=== PATIENT | female | born 1965 | race Caucasian/White ===

== ENCOUNTER 2017-04-19 12:04 | Inpatient (IN) | payer OTHER ==
[2017-04-19 12:52] LABS: % IMMATURE GRANULYOCYTES 0.2 % (0.0-1.1); ABSOLUTE IMMATURE GRANULOCYTES 0.02 10^3/uL (0.00-0.10); ADD DIFF? NO; ADD MORPH? NO; ADD SCAN? NO; ATYPICAL LYMPHOCYTE FLAG 0 (0-99); FRAGMENT RBC FLAG 10 (0-99); HEMATOCRIT 41.6 % (38.0-47.0); HEMOGLOBIN 13.8 g/dL (12.6-16.3); LEFT SHIFT FLG 0 (0-99); LIPEMIA HEMOLYSIS FLAG 80 (0-99); MEAN CELL HEMOGLOBIN 31.4 pg (27.9-34.1); MEAN CELL HEMOGLOBIN CONCENTR. 33.2 g/dL (32.4-36.7); MEAN CELL VOLUME 94.8 fL (81.5-99.8); MEAN PLATELET VOLUME 11.6 fL (8.7-11.7); PLATELET CLUMPS FLAG 10 (0-99); PLATELET COUNT 306 10^3/uL (150-400); RED BLOOD CELL COUNT 4.39 10^6/uL (4.18-5.33); RED CELL DISTRIBUTION WIDTH 12.5 % (11.5-15.2)
--- NOTE | 2017-04-19 13:01 | EDPHY ---
H & P Time Seen by Provider: 04/19/17 12:32 HPI/ROS: CHIEF COMPLAINT: Mental health hold HISTORY OF PRESENT ILLNESS: Patient is a history of bipolar disorder and is brought in by [facility] on a mental health hold, which states in part that she is "not eating, not taking meds, not showing to work, increasingly agitated..." Patient apparently is been talking in a baby voice and acting psychotic and distracted. On arrival the patient has no medical complaints. She specifically denies any recent illnesses or overdose. Is not suicidal. REVIEW OF SYSTEMS: Eye: no change in vision ENT: no sore throat Cardiac: no chest pain or syncope Pulmonary: no cough or SOB Abdomen: no vomiting, diarrhea, abdominal pain Musculoskeletal: no back pain Skin: no rash Neuro: no headache Constitutional: no fever : no urinary symptoms A comprehensive 10 point review of systems is otherwise negative aside from elements mentioned in the history of present illness. PAST MEDICAL HISTORY: bipolar disorder Social history: Denies alcohol or drugs today General Appearance: Alert and conversant, cooperative. Eyes: No scleral icterus. ENT, Mouth: Normal mucous membranes. Respiratory: Normal respiratory effort, breath sounds equal, lungs are clear to auscultation. Cardiovascular: Regular rate and rhythm. Gastrointestinal: Abdomen is soft and non tender. Neurological: Alert and oriented x3. Normally conversant. Face symmetric, normal movement and sensation in all extremities. Skin: Warm and dry, no rashes. Musculoskeletal: No extremity deformity or tenderness. Psychiatric: Not agitated. Emergency Department course/MDM: Patient arrives on a mental health hold without symptoms or physical exam evidence of medical illness. She is noted to be hypertensive but is asymptomatic from that standpoint. [place] 1.1, ethanol 0, cleared medically for psychiatric evaluation. 1800: The patient will be transferred to [facility] for inpatient psychiatric hospital bed not available at this facility, in stable condition; accepting physician is Dr. Darci Vargas. Smoking Status: Never smoked Constitutional: Initial Vital Signs Temperature (C) 36.7 C 04/19/17 12:09 Heart Rate 79 04/19/17 12:09 Respiratory Rate 20 04/19/17 12:09 Blood Pressure 161/120 H 04/19/17 12:09 O2 Sat (%) 97 04/19/17 12:09 O2 Delivery Mode Room Air Allergies/Adverse Reactions: No Known Allergies Allergy (Unverified 04/19/17 12:08) Home Medications: Medication Instructions Recorded ENALAPRIL MALEATE 04/19/17 [place] Carbonate 04/19/17 Risperdal 04/19/17 Ritalin 10mg (*) 04/19/17 Medical Decision Making Differential Diagnosis: Differential considered including but not limited to lithium toxicity, other medication side effect, bipolar disorder, drug or alcohol, metabolic. - Data Points Laboratory Results: Laboratory Results 04/19/17 12:30 04/19/17 12:30 04/19/17 04/19/17 04/19/17 13:50 12:30 12:30 WBC RBC Hgb Hct MCV MCH MCHC RDW Plt Count MPV Neut % (Auto) Lymph % (Auto) [place] % (Auto) Eos % (Auto) Baso % (Auto) Nucleat RBC Rel Count Absolute Neuts (auto) Absolute Lymphs (auto) Absolute Monos (auto) Absolute Eos (auto) Absolute Basos (auto) Absolute Nucleated RBC Immature Gran % Immature Gran # Sodium 140 mEq/L mEq/L (134-144) Potassium 4.1 mEq/L mEq/L (3.5-5.2) Chloride 104 mEq/L mEq/L (97-110) Carbon Dioxide 21 mEq/l L mEq/l (22-31) Anion Gap 15 mEq/L mEq/L (8-16) BUN 12 mg/dL mg/dL (7-23) Creatinine 1.0 mg/dL mg/dL (0.6-1.0) Estimated GFR 59 Glucose 103 mg/dL H mg/dL (70-100) Calcium 11.2 mg/dL H mg/dL (8.5-10.4) Phosphorus 4.0 mg/dL mg/dL (2.5-4.5) Beta HCG, Qual NEGATIVE Urine Opiates Screen NEGATIVE (NEGATIVE) Urine Barbiturates NEGATIVE (NEGATIVE) Ur Phencyclidine Scrn NEGATIVE (NEGATIVE) Ur Amphetamine Screen NEGATIVE (NEGATIVE) U Benzodiazepines Scrn NEGATIVE (NEGATIVE) [place] 1.1 mEq/L mEq/L (0.6-1.2) Urine Cocaine Screen NEGATIVE (NEGATIVE) U Marijuana (THC) Screen NEGATIVE (NEGATIVE) Ethyl Alcohol < 10 mg/dL mg/dL (0-10) 04/19/17 12:30 WBC 8.26 10^3/uL 10^3/uL (3.80-9.50) RBC 4.39 10^6/uL 10^6/uL (4.18-5.33) Hgb 13.8 g/dL g/dL (12.6-16.3) Hct 41.6 % % (38.0-47.0) MCV 94.8 fL fL (81.5-99.8) MCH 31.4 pg pg (27.9-34.1) MCHC 33.2 g/dL g/dL (32.4-36.7) RDW 12.5 % % (11.5-15.2) Plt Count 306 10^3/uL 10^3/uL (150-400) MPV 11.6 fL fL (8.7-11.7) Neut % (Auto) 68.6 % % (39.3-74.2) Lymph % (Auto) 23.2 % % (15.0-45.0) [place] % (Auto) 6.7 % % (4.5-13.0) Eos % (Auto) 0.8 % % (0.6-7.6) Baso % (Auto) 0.5 % % (0.3-1.7) Nucleat RBC Rel Count 0.0 % % (0.0-0.2) Absolute Neuts (auto) 5.66 10^3/uL 10^3/uL (1.70-6.50) Absolute Lymphs (auto) 1.92 10^3/uL 10^3/uL (1.00-3.00) Absolute Monos (auto) 0.55 10^3/uL 10^3/uL (0.30-0.80) Absolute Eos (auto) 0.07 10^3/uL 10^3/uL (0.03-0.40) Absolute Basos (auto) 0.04 10^3/uL 10^3/uL (0.02-0.10) Absolute Nucleated RBC 0.00 10^3/uL 10^3/uL (0-0.01) Immature Gran % 0.2 % % (0.0-1.1) Immature Gran # 0.02 10^3/uL 10^3/uL (0.00-0.10) Sodium Potassium Chloride Carbon Dioxide Anion Gap BUN Creatinine Estimated GFR Glucose Calcium Phosphorus Beta HCG, Qual Urine Opiates Screen Urine Barbiturates Ur Phencyclidine Scrn Ur Amphetamine Screen U Benzodiazepines Scrn [place] Urine Cocaine Screen U Marijuana (THC) Screen Ethyl Alcohol Departure - Departure Disposition: [facility] IP Clinical Impression: Bipolar disorder Qualifiers: Active/Remission status: currently active Current bipolar episode type: mixed Current episode severity: severe Psychotic features: with psychotic features Qualified Code(s): F31.64 - Bipolar disorder, current episode mixed, severe, with psychotic features Condition: Good Referrals: DR CHRISTA [Other] - As per Instructions
[2017-04-19 13:07] LABS: ANION GAP 15 mEq/L (8-16); CALCIUM 11.2 mg/dL (8.5-10.4); CARBON DIOXIDE 21 mEq/l (22-31); CHLORIDE 104 mEq/L (97-110); ETHANOL SERUM < 10 mg/dL (0-10); GLOMERULAR FILTRATION RATE 59; GLUCOSE 103 mg/dL (70-100); LITHIUM 1.1 mEq/L (0.6-1.2); POTASSIUM 4.1 mEq/L (3.5-5.2); SODIUM 140 mEq/L (134-144)
[2017-04-19] MEDS ORDERED: MAG HYDROX/AL HYDROX/SIMETH 30 ML UDCUP PO PRN (20:53)
[2017-04-19] MEDS ORDERED: NICOTINE POLACRILEX 2 MG GUM B PRN (20:53)
[2017-04-19] MEDS ORDERED: MAGNESIUM HYDROXIDE 30 ML UDCUP PO PRN (20:53)
[2017-04-19] MEDS ORDERED: LORazepam 0.5 MG TAB PO PRN (20:53)
[2017-04-19] MEDS ORDERED: OLANZapine 5 MG TAB PO PRN (20:54)
[2017-04-19] MEDS ORDERED: LITHIUM CARBONATE 600 MG CAP PO ONE (21:00)
--- NOTE | 2017-04-20 09:48 | BAPA ---
[f rep st] ADMISSION PSYCHIATRIC ASSESSMENT CHIEF COMPLAINT: The patient is a 51-year-old female whose chief complaint to me today is, "Two officers came by the home I am living in now." HISTORY OF PRESENT ILLNESS: At this point in time, I have minimal past history on this patient. She readily admits that she has bipolar mood disorder. Her story is difficult to put together, but there is also some collateral information from the patient's chart. She has bipolar mood disorder, and her friends contacted police officers several times for welfare checks. She has not been coming to work. They believe she has not been taking her medications. She has been increasingly disturbed, disheveled, and not maintaining her normal life patterns. She is unable to give me substantial history today. She does tell me that her outpatient psychiatrist is currently Fortino Clay MD. We will contact him for collateral information. REVIEW OF SYSTEMS: She is unable to describe her current mood. She tells me her sleep has been "very sound." She relates her energy, concentration, appetite are all "good." She denies any suicidal or homicidal ideation. She endorses abnormal perceptions, but seems to think that this is a normal part of life. Thus, I am not clear what she is telling me when she endorses abnormal perceptions. She also endorses feeling anxious because she is in the hospital but cannot elaborate on this further. SOCIAL HISTORY: She denies tobacco, alcohol, or substance use. CURRENT MEDICATIONS: Her current medications include lithium, methylphenidate, enalapril, and risperidone. She is not sure of all the doses. She indicates that, at one point, she was taking 1200 mg of lithium carbonate each day and 0.5 mg of Risperdal each day. She is not clear about the other doses of medications. ALLERGIES: She denies any allergies to any medications. PAST MEDICAL HISTORY: Remarkable for hypertension and menopause. PAST PSYCHIATRIC HISTORY: She readily admits that she has bipolar mood disorder. MENTAL STATUS EXAM: She is awake and alert but very poorly groomed, quite disheveled. Her speech is normal in rate and tone; however, her thought processes are circumstantial, rambling, and very disorganized. She takes a very long time to get to any point, and the point that she makes is usually not the one she seemed to start out toward. Her thought processes border on significantly tangential. Her mood and affect are incongruent. She looks distressed and presents distressed but says her mood is good. Mood does not appear to be significantly elevated at this point in time. Her insight and judgment are both quite poor. IMPRESSION: The patient is a 51-year-old female with bipolar mood disorder, whom we have minimal past history on, but at this point in time it appears she has not been working, not taking her medications, and friends and family members became very concerned about her and initiated a welfare check. She ended up in our emergency room, was placed on a 72-hour mental health hold, and is now in our inpatient psychiatric unit. She has an outpatient psychiatrist, and we will be contacting him for further history and trying to restart her medications. DIAGNOSIS: 1. Bipolar mood disorder, current episode mixed, severe. 2. Hypertension 3. Menopause PLAN: 1. Admit on a 72-hour mental health hold which expires 04/22/2017 at 12:15. 2. Collect collateral information. 3. Restart medications. 4. Coordinate with outpatient care team for followup. /[id number]/MODL MTDD
[2017-04-20] MEDS ORDERED: LORazepam 0.5 MG TAB PO PRN (10:33)
--- NOTE | 2017-04-20 14:11 | SOAPPROG ---
SOAP Progress Note Assessment/Plan: Assessment: Bipolar Mood Disorder, MRE Manic (v mixed) Hypertension Menopause Plan: 04/20/17 14:11 Subjective: Additional Information Spoke with outpatient psychiatrist, Fortino Ladd MD. He confirms Bipolar Mood disorder. He has been treating Ms Parmar for several years. She has periodic exacerbations of her Bipolar Mood Disorder, but during her stable periods she does well. She has many friends. She works for [employer] and has for years. Home medications include lithium carbonate 1200 mg BID, risperdal 0.25 mg daily , and meds for HTN. In January they decided to try adding a stimulant, methyphenidate, to help with her attention problems. Dr. Ladd thinks the methylphenidate helped a lot with attention problems, but may have precipitated this exacerbation of her Bipolar. Objective: Vital Signs Temp Pulse Resp BP Pulse Ox 36.7 C 70 16 170/90 H 97 04/20/17 00:21 04/20/17 09:00 04/20/17 00:21 04/20/17 09:00 04/20/17 09:00 ICD10 Worksheet Patient Problems: Problems Problem Status Onset Bipolar disorder Acute
--- NOTE | 2017-04-20 16:18 | BCON ---
[f rep st] BEHAVIORAL HEALTH CONSULTATION INTERNAL MEDICINE CONSULTATION DATE OF CONSULTATION: 04/20/2017 REFERRING PHYSICIAN: Darci Vargas MD REASON FOR REFERRAL: Medical clearance for inpatient behavioral health stay. HISTORY OF PRESENT ILLNESS: This patient was brought to the emergency department on mental health hold. She had been noted by friends to be not eating, not taking medications, not showing up to work, and increasingly agitated. She was evaluated by the mental health team and admitted for further psychiatric care. She currently is without any acute complaints. PAST MEDICAL HISTORY: 1. Bipolar disorder. 2. Hypertension. PAST SURGICAL HISTORY: She denies any history of surgeries. MEDICATIONS: 1. Methylphenidate 10 mg p.o. daily. 2. [place] 1200 mg p.o. twice daily. 3. Risperidone 0.25 mg daily. 4. Enalapril 10 mg p.o. daily. ALLERGIES: There are no known drug allergies. SOCIAL HISTORY: She is a nonsmoker. She uses alcohol at times. She works at [employer]. FAMILY HISTORY: Noncontributory. REVIEW OF SYSTEMS: She thinks she has lost some weight. She has intentionally been exercising more with walking. However, she says she never checks her weight but she feels better. She denies any symptoms consistent with hypertension, including no mental status changes, no headaches, or with hyperparathyroidism including no abdominal pain. She has no constipation, nausea, vomiting or diarrhea. She denies dysuria or urinary frequency. Otherwise, a 10-point review of systems is negative. PHYSICAL EXAM: VITAL SIGNS: Blood pressure this morning was 170/90 and during the course of her stay, blood pressure has ranged from 112/85 to 170 systolic on 1 occasion, and 120 diastolic on another occasion. Heart rate is 70, respiratory rate is 16, oxygen saturation is 97% on room air. Temperature is 36.7 degrees centigrade. Her weight is 63.5 kg, body mass index is calculated at 19.5, but she certainly appears overweight, so either the weight or the height is inaccurate. GENERAL: This is a well-nourished, well-developed, overweight woman. Cooperative and in no acute distress. HEENT: Extraocular movements are intact. Pupils are equal, round, and reactive to light. Mucous membranes are moist. Dentition is in good condition. NECK: Supple. HEART: There is regular rate and rhythm with no murmurs, rubs or gallops. LUNGS: Clear to auscultation bilaterally. ABDOMEN: Soft, nontender, nondistended with normoactive bowel sounds. EXTREMITIES: There is no cyanosis, clubbing, or edema. NEUROLOGIC: She is alert. She is distracted, tangential and often unable to complete a sentence due to tangentiality and distraction. She has mildly pressured speech, and she is emotionally labile. Cranial nerves 2-12 are grossly intact. There is no focal weakness. Sensation is intact to light touch and gait is within normal limits. LABORATORY STUDIES: Drawn in the emergency department: CBC was entirely within normal limits. Serum chemistry revealed a slightly low carbon dioxide at 21, a slightly high glucose at 103 though this was likely not fasting, and a high calcium at 11.2, phosphorus was normal at 4, beta hCG was negative for . Serum toxicology revealed a therapeutic lithium level of 1.1, was negative for ethyl alcohol. Urine toxicology was negative for any substances of abuse. ASSESSMENT/RECOMMENDATIONS: 1. Mental health issues. Pending further evaluation and management per Psychiatry and the mental health team. 2. Hypertension. She is not currently prescribed enalapril. There is a p.r.n. order for clonidine. It is possible that with increased exercise and if she has actually lost weight, she has reduced her need for antihypertensive medication. However, if she continues to be hypertensive and especially if there is need for the p.r.n. clonidine, advise resuming enalapril at 10 mg p.o. daily. 3. Hypercalcemia of unclear etiology. I have ordered a PTH and vitamin D level to clarify whether or not there is an abnormality in calcium metabolism. I see no medical contraindications to this patient's continued stay in the inpatient behavioral health unit or to any psychiatric medications or procedures. Thank you very much for including me in the care of this patient and please do not hesitate to contact me or the hospitalist service should there be need for further medical evaluation. /[id number]/MODL MTDD
[2017-04-20 16:39] LABS: PTH INTACT NO MINERALS 74.7 pg/ml (10.8-79.4)
[2017-04-20 16:44] LABS: VITAMIN D 25-HYDROXY TOTAL 46.4 ng/mL (30.0-100.0)
[2017-04-20] MEDS ORDERED: risperiDONE 1 MG TAB PO SCH (21:00)
[2017-04-20] MEDS ORDERED: LITHIUM CARBONATE ER 300 MG TAB PO SCH (21:00)
[2017-04-20] MEDS: LITHIUM CARBONATE ER 300 MG TAB PO SCH (21:27)
[2017-04-21] MEDS: LITHIUM CARBONATE ER 300 MG TAB PO SCH ×2 (07:56→21:20)
--- NOTE | 2017-04-21 10:19 | SOAPPROG ---
SOAP Progress Note Assessment/Plan: Assessment: Bipolar Mood Disorder, MRE Manic (v mixed) Work on increasing lithium carbonate to 1200 mg BID. Change risperidone to morning dose. Hypertension Continue clonidine, consider increasing dose. Consider changing to patch. Menopause No treatment Plan: Increase lithium carbonate to 900 mg BID Change risperidone to 1 mg AM. [facility] expires tomorrow at 1215, consider STc. 04/21/17 10:24 Subjective: "What do I do to change my Psychiatrist?" Ms. Parmar slept a little better last night. She continues to have a mixed mood with some irritability and grandiosity. We review her medications today including her hypertension medication (clonidine) which is new to her. She denies any medicine SEs. She requests changing her risperidone to an AM dose. She denies taking or needing any soporifics. Objective: Vital Signs Temp Pulse Resp BP Pulse Ox 36.9 C 71 12 152/86 H 96 04/21/17 08:18 04/21/17 08:18 04/21/17 08:18 04/21/17 08:18 04/21/17 00:30 Medications Generic Name Dose Route Start Last Admin Trade Name Kevin PRN Reason Stop Dose Admin Risperidone 1 mg 04/20/17 21:00 04/20/17 21:27 Risperdal PO 10/17/17 20:59 1 mg HS MALLORY [place] Carbonate 600 mg 04/20/17 21:00 04/21/17 07:56 Lithobid PO 10/17/17 20:59 600 mg BID MALLORY Clonidine 0.1 mg 04/20/17 16:00 04/21/17 07:56 Catapres PO 10/17/17 15:59 0.1 mg TID MALLORY MSE Awake, alert, poorly groomed. Continues to wear same dress she was admitted wearing. Speech disjointed and pressured at times Thought processes disorganized and tangential lacks insight/judgment Sleep: 5 hours. ICD10 Worksheet Patient Problems: Problems Problem Status Onset Bipolar disorder Acute
--- NOTE | 2017-04-21 14:33 | SOAPPROG ---
SOAP Progress Note Assessment/Plan: Assessment: HTN: will restart enalapril. Primary hyperthyroidism? Elevated calcium and high-normal PTH. Advise follow- up labs and further evaluation by PCP after discharge. 04/21/17 14:32 Subjective: Reviewed labs and blood pressure. Objective: Vital Signs Temp Pulse Resp BP Pulse Ox 36.9 C 71 12 152/86 H 96 04/21/17 08:18 04/21/17 08:18 04/21/17 08:18 04/21/17 08:18 04/21/17 00:30 ICD10 Worksheet Patient Problems: Problems Problem Status Onset Bipolar disorder Acute
[2017-04-21] MEDS ORDERED: ENALAPRIL MALEATE 10 MG TAB PO SCH (14:45)
[2017-04-21] MEDS: ENALAPRIL MALEATE 5 MG TAB PO SCH (16:36)
[2017-04-22] MEDS: risperiDONE 0.25 MG TAB PO SCH ×2 (08:12→08:25)
[2017-04-22] MEDS: ENALAPRIL MALEATE 5 MG TAB PO SCH ×2 (08:15→08:24)
[2017-04-22] MEDS: LITHIUM CARBONATE ER 300 MG TAB PO SCH ×3 (08:15→20:42)
[2017-04-22] MEDS: risperiDONE 1 MG TAB PO SCH (12:19)
--- NOTE | 2017-04-22 14:26 | SOAPPROG ---
SOAP Progress Note Assessment/Plan: Assessment: Bipolar Mood Disorder, MRE Manic (v mixed) Work on increasing lithium carbonate to 1200 mg BID. Change risperidone to morning dose. Hypertension BP better. Continue clonidine, consider increasing dose. Consider changing to patch. Hyperparathyroidism Hyperparathyroidism in the face of oil heaterman lithium use. This is a common and relatively benign complication of senior care lithium use. It is usually four gland hyperplasia and we do not recommend surgery. When Ms. Parmar is improved, we can try to get a 24 hour urine for calcium and creatinine to check urinary calcium excretion. Menopause No treatment Plan: Increase lithium carbonate to 1200 mg BID Change risperidone to 1 mg AM. [facility] for Gra[facility] Disability 04/22/17 14:26 Subjective: "I don't like taking medications out of a cup." Ms. Parmar has complaints about how her medications are given to her in a cup, already taken out of the bottle so she does not know what they are. She is suspicious and paranoid that we are giving her something other than lithium. She also has perseverative requests about taking her medications with milk and food. The nursing staff have tried to accommodate her requests, and the nursing staff inform me that she keeps changing her requests. This appears to be part of her thought disordered state. Objective: Vital Signs Temp Pulse Resp BP Pulse Ox 36.4 C 62 12 125/76 H 98 04/22/17 06:14 04/22/17 06:14 04/22/17 06:14 04/22/17 06:14 04/22/17 06:14 Medications Generic Name Dose Route Start Last Admin Trade Name Freq PRN Reason Stop Dose Admin [place] Carbonate 900 mg 04/21/17 10:42 04/22/17 08:23 Lithobid PO 10/17/17 20:59 600 mg BID MALLORY Enalapril Maleate 10 mg 04/21/17 14:45 04/22/17 08:24 Vasotec PO 10/18/17 14:44 Not Given DAILY MALLORY Clonidine 0.1 mg 04/20/17 16:00 04/22/17 08:24 Catapres PO 10/17/17 15:59 Not Given TID MALLORY Risperidone 1 mg 04/22/17 09:15 04/22/17 12:19 Risperdal PO 10/19/17 09:14 Not Given DAILY MALLORY Laboratory Tests 04/19/17 04/20/17 12:30 12:30 Calcium 11.2 H Phosphorus 4.0 25-OH Vitamin D Total 46.4 PTH Intact 74.7 MSE Awake, alert Grooming remains poor, but dressed a little more appropriately today. Mood/Affect congruent, irritable, reasonable range Speech not rapid today, but still pressured. Thought processes more linear, but still illogical Thought content with paranoia Poor insight and poor judgment. ICD10 Worksheet Patient Problems: Problems Problem Status Onset Bipolar disorder Acute
--- NOTE | 2017-04-22 15:25 | BLETTER ---
April 22, [address] [place], [place] RE: Short-term certification of Daya Parmar (1965). Honorable Lathe Turner: I am writing this letter in support of the certification of Ms. Daya Parmar. I certified her for short-term care and treatment. Ms. Parmar has bipolar mood disorder. Ms. Parmar was hospitalized at [facility] on a 72-hour mental health hold for her bipolar mood disorder. I am placing her on a short- term certification today. Ms. Parmar has a many year history of bipolar mood disorder. She has a history of exacerbations requiring hospitalization in the past. She has stopped her medicines several times, resulting in exacerbations. Her current hospital stay may have been precipitated by reducing her medication adherence, as well as changes to her medication regimen she and her outpatient psychiatrist made. On our unit, her mood remains irritable, and very confused. She has significant paranoia bout her medications. Her thought processes are markedly disorganized. She is clearly unable to meet her basic needs for food, clothing , and fci at this point in time. In my professional opinion, Ms. Daya Parmar suffers from a significant mental illness which causes her to be gravely disabled. Ms. Parmar lacks the insight and judgment needed to participate in her treatment decisions at this point in time. I have offered her voluntary treatment, which she is accepting, but reasonable grounds exist to believe she will not remain in voluntary treatment. She has been read her rights, including her right to patent paralegal and third- republican notification. She is receiving a copy of this certification. Respectfully yours, JAD
[2017-04-23] MEDS: ACETAMINOPHEN 325 MG TAB PO PRN ×3 (07:00→17:00)
[2017-04-23] MEDS: LITHIUM CARBONATE ER 300 MG TAB PO SCH ×2 (08:58→18:16)
[2017-04-23] MEDS: ENALAPRIL MALEATE 5 MG TAB PO SCH (09:00)
[2017-04-23] MEDS: risperiDONE 1 MG TAB PO SCH (09:17)
--- NOTE | 2017-04-23 13:13 | SOAPPROG ---
[place] Progress Note Assessment/Plan: Assessment: Bipolar Mood Disorder, MRE Manic (v mixed) Work on increasing lithium carbonate to 1200 mg BID. Change risperidone to morning dose, 0.5 mg AM is all she will take. Hypertension BP better. Continue clonidine, consider increasing dose. Consider changing to patch. Hyperparathyroidism Hyperparathyroidism in the face of care home lithium use. 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 It is usually four gland hyperplasia and we do not recommend surgery. When Ms. Parmar is improved, we can try to get a 24 hour urine for calcium and creatinine to check urinary calcium excretion. Menopause No treatment STC Done Plan: Increase lithium carbonate to 1200 mg BID Change risperidone to 0.5 mg AM. 04/23/17 13:13 Subjective: "Let me think about that." (In response to question, 'How are you today?') I didn't sleep well because I got a roommate." Ms. Parmar continues to have disorganized and illogical thought processes and lacks insight into her illness. She has a hard time taking medications. She is distrustful (paranoid) because some of the pill look different than what she takes at home. Ms. Parmar tells me she is willing to increase her lithium to 1200 mg BID, but she has declined to take full doses of lithium carbonate so far. We also discuss increasing her dose of risperidone, and she declines taking any more than 0.5 mg in AM. We were unable to get her lab this AM, will try again tomorrow. Objective: Vital Signs Temp Pulse Resp BP Pulse Ox 35.8 C L 74 15 129/79 H 98 04/23/17 00:03 04/23/17 00:03 04/23/17 00:03 04/23/17 00:03 04/23/17 00:03 Medications Generic Name Dose Route Start Last Admin Trade Name Freq PRN Reason Stop Dose Admin Enalapril Maleate 10 mg 04/21/17 14:45 04/23/17 09:00 Vasotec PO 10/18/17 14:44 Not Given DAILY MALLORY [place] Carbonate 900 mg 04/21/17 10:42 04/23/17 08:58 Lithobid PO 10/17/17 20:59 900 mg BID MALLORY Risperidone 1 mg 04/22/17 09:15 04/23/17 09:17 Risperdal PO 10/19/17 09:14 Not Given DAILY MALLORY Clonidine 0.1 mg 04/20/17 16:00 04/23/17 08:57 Catapres PO 10/17/17 15:59 0.1 mg TID MALLORY MSE Awake, alert, grooming still below par with unwashed hair today. Still wearing dress she was admitted in. Speech pressured but normal rate. Thought processes illogical. Appears confused and having difficulty tracking conversation well. Does not appear to be responding to internal stimuli. Lacks insight. Lacks judgment. ICD10 Worksheet Patient Problems: Problems Problem Status Onset Bipolar disorder Acute
[2017-04-24] MEDS: ACETAMINOPHEN 325 MG TAB PO PRN ×2 (00:03→14:25)
[2017-04-24] MEDS: risperiDONE 1 MG TAB PO SCH (09:27)
[2017-04-24] MEDS: ENALAPRIL MALEATE 5 MG TAB PO SCH (09:32)
[2017-04-24] MEDS: LITHIUM CARBONATE ER 300 MG TAB PO SCH ×2 (09:34→21:23)
[2017-04-24 09:47] LABS: ANION GAP 9 mEq/L (8-16); CALCIUM 10.3 mg/dL (8.5-10.4); CARBON DIOXIDE 24 mEq/l (22-31); CHLORIDE 108 mEq/L (97-110); CREATININE 0.9 mg/dL (0.6-1.0); GLOMERULAR FILTRATION RATE > 60; GLUCOSE 65 mg/dL (70-100); POTASSIUM 4.2 mEq/L (3.5-5.2); SODIUM 141 mEq/L (134-144)
--- NOTE | 2017-04-24 15:20 | SOAPPROG ---
SOAP Progress Note Assessment/Plan: Assessment: 52yoCF with BMD/nicolás admitted in decompensated state off medications, now on STC and restarted on Li/Risp 04/24/17 13:13 slept 5.5hr, per staff. attending groups. states she does not want meds from a cup. wants "scan" of her medications so she knows the info "goes somewhere". then t/a privacy in the hospital, feeling staff was not approachable and staff changes weren't complete during shifts (?) . talked of working at [employer] for 10yrs, and "I think I'll talk to HR and quit ". concerned about new med clonidine for BP instead of prior one she took at home, read med info provided to her by staff and not sure if she should be taking this with her other meds. wondered "how do I get a copy of the questions and answers?" related to our interview. no physical complaints except +constipation and some dry mouth. denied tremors/stiffness/drooling. no cogwheeling on exam. very fine intention tremor on FNF states some occasional unsteady feeling but not noted with any ataxia or gait disturbance. +mild facial grimacing w/jaw mvmts, but patient states she is not noticing any problems, and reports no difficulty swallowing or eating. MSE: cooperative, casually dressed, sl unkempt, nml speech rate/vol, nml psychom activity, mood "fine," affect irritable, denied ah/vh or any si/hi, thoughts somewhat disorganized. i/j impaired. A&Ox3, reporting date as "" PLAN: labs done today. Li+ 1.0. Chem 7 wnl monitor apparent mild EPS, will not incr Risp at this time although could benefit. may need addition of antichol (altho this would incr constip/dry mouth which she reports having) or change MONIKA cont on STC Objective: Vital Signs Temp Pulse Resp BP Pulse Ox 36.6 C 70 12 143/82 H 99 04/24/17 08:00 04/24/17 08:00 04/24/17 08:00 04/24/17 09:32 04/24/17 08:00 Laboratory Results 04/24/17 06:40 - Time Spent With Patient Time Spent With Patient: 35min - Pending Discharge Pending Discharge Within 24 Hours: No Pending Discharge Within 48 Hours: No ICD10 Worksheet Patient Problems: Problems Problem Status Onset Bipolar disorder Acute
[2017-04-25] MEDS: ACETAMINOPHEN 325 MG TAB PO PRN ×5 (00:59→21:30)
[2017-04-25] MEDS: ENALAPRIL MALEATE 5 MG TAB PO SCH (09:02)
[2017-04-25] MEDS: LITHIUM CARBONATE ER 300 MG TAB PO SCH ×2 (09:02→19:36)
[2017-04-25] MEDS: risperiDONE 1 MG TAB PO SCH (09:03)
--- NOTE | 2017-04-25 23:46 | SOAPPROG ---
SOAP Progress Note Assessment/Plan: Assessment: 52yoCF with BMD/nicolás admitted in decompensated state off medications, now on STC and restarted on Li/Risp 04/24/17 13:13 slept 5.5hr, per staff. attending groups. states she does not want meds from a cup. wants "scan" of her medications so she knows the info "goes somewhere". then t/a privacy in the hospital, feeling staff was not approachable and staff changes weren't complete during shifts (?) . talked of working at [employer] for 10yrs, and "I think I'll talk to HR and quit ". concerned about new med clonidine for BP instead of prior one she took at home, read med info provided to her by staff and not sure if she should be taking this with her other meds. wondered "how do I get a copy of the questions and answers?" related to our interview. no physical complaints except +constipation and some dry mouth. denied tremors/stiffness/drooling. no cogwheeling on exam. very fine intention tremor on FNF states some occasional unsteady feeling but not noted with any ataxia or gait disturbance. +mild facial grimacing w/jaw mvmts, but patient states she is not noticing any problems, and reports no difficulty swallowing or eating. MSE: cooperative, casually dressed, sl unkempt, nml speech rate/vol, nml psychom activity, mood "fine," affect irritable, denied ah/vh or any si/hi, thoughts somewhat disorganized. i/j impaired. A&Ox3, reporting date as "" PLAN: labs done today. Li+ 1.0. Chem 7 wnl monitor apparent mild EPS, will not incr Risp at this time although could benefit. may need addition of antichol (altho this would incr constip/dry mouth which she reports having) or change MONIKA cont on STC 04/25/17 23:36 slept 6hr. Clonidine held last pm b/c low BP. perseverating on wanting to contact outpt psych, and alleges not having seen any MD for few days. no new complaints. eating dinner. denied problems with eating/swallowing and denied any other physical c/o, altho still w/mild facial grimacing. denied awareness of any abn facial mvmts. reports problems of communication between staff but this is fine b/c she is familiar with the staff. MSE: cooperative, casually dressed, nml speech rate/vol, nml eye contact, nm psychom activity, +mild facial grimacing, still with some irritability and some thought disorganization, did not appear responding to int stim, no si/hi or ah/ vh PLAN: cont Li+ will change risperdal from 0.5mg qam scheduled to qd prn and monitor for change in facial grimacing Objective: Vital Signs Temp Pulse Resp BP Pulse Ox 36.6 C 45 L 99 H 120/79 98 04/25/17 00:30 04/25/17 15:49 04/25/17 15:49 04/25/17 21:05 04/25/17 09:00 Laboratory Results 04/24/17 06:40 - Time Spent With Patient Time Spent With Patient: 15min - Pending Discharge Pending Discharge Within 24 Hours: No Pending Discharge Within 48 Hours: No ICD10 Worksheet Patient Problems: Problems Problem Status Onset Bipolar disorder Acute
[2017-04-25] MEDS ORDERED: risperiDONE 0.5 MG TAB PO PRN (23:49)
[2017-04-26] MEDS: ACETAMINOPHEN 325 MG TAB PO PRN ×3 (04:23→21:24)
[2017-04-26] MEDS: LITHIUM CARBONATE ER 300 MG TAB PO SCH ×2 (08:33→18:00)
[2017-04-26] MEDS: ENALAPRIL MALEATE 5 MG TAB PO SCH (08:39)
--- NOTE | 2017-04-26 10:44 | SOAPPROG ---
SOAP Progress Note Assessment/Plan: Assessment: Bipolar Mood Disorder, MRE Manic (v mixed) [place] carbonate at usual effective dose. Encouraged restarting scheduled risperidone. Hypertension BP better. Has been low. Will start decreasing dose of clonidine. Hyperparathyroidism Repeat calcium normal. Menopause No treatment STC Done Plan: Continue lithium carbonate to 1200 mg BID Change risperidone to 0.5 mg AM. 04/26/17 10:51 Subjective: "My mood has been good." "Remove the stigma." "I was introduced to clonidine when I didn't know about the benefits." Ms. Parmar slept 5.5 hours last night. She reports she is well rested today on this amount of sleep. She is participating in groups more. She is a little more cooperative iwth her medication treatment but still questions a lot of her medications, the pill shapes and sizes disturbs her. Learned level was good. Renal function intact. Calcium normal. Objective: Vital Signs Temp Pulse Resp BP Pulse Ox 36.6 C 52 L 14 114/70 100 04/26/17 07:33 04/26/17 07:33 04/26/17 07:33 04/26/17 07:33 04/26/17 07:33 Laboratory Results 04/24/17 06:40 Medications Generic Name Dose Route Start Last Admin Trade Name Kevin PRN Reason Stop Dose Admin Clonidine 0.2 mg 04/23/17 13:18 04/26/17 08:37 Catapres PO 10/17/17 15:59 0.2 mg TID [facility] Enalapril Maleate 10 mg 04/21/17 14:45 04/26/17 08:39 Vasotec PO 10/18/17 14:44 10 mg DAILY [facility] Learned Carbonate 1,200 mg 04/23/17 13:17 04/26/17 08:33 Lithobid PO 10/17/17 20:59 1,200 mg BID [facility] Laboratory Tests 04/24/17 06:40 BUN 17 Creatinine 0.9 Estimated GFR > 60 Calcium 10.3 Learned 1.0 MSE Awake, alert. Grooming better today. Hair brushed. Dress still inappropriate for inpatient unit. Speech normal in rate and tone today and not pressured, not rapid, much more conversational. Mood/Affect incongruent and increased range of affect. Thought processes more organized. Thought content still odd and unusual. Does not appear to respond to internal stimuli but suspicious about medications (wonders if the pills we are giving her are what we say they are.) Also distrustful of the process of being in the inpatient unit. Talks about how the "Paperwork" is difficult for her and others to understand and talks about her desire to have an "advocate" to help her navigate "the process." Insight and judgment remain poor to fair. Acknowledges she has a mental illness but questions many aspects of treatment. No jaw tremor or other tremor to my exam today. Selected Entries 04/25/17 04/25/17 04/25/17 15:49 16:13 21:05 Blood Pressure 94/62 L 94/62 L 120/79 04/26/17 04/26/17 00:30 07:33 Blood Pressure 102/55 L 114/70 ICD10 Worksheet Patient Problems: Problems Problem Status Onset Bipolar disorder Acute
[2017-04-27] MEDS: LITHIUM CARBONATE ER 300 MG TAB PO SCH ×2 (08:36→20:51)
[2017-04-27] MEDS: ENALAPRIL MALEATE 5 MG TAB PO SCH (08:39)
[2017-04-27] MEDS ORDERED: risperiDONE 0.5 MG TAB PO SCH ×2 (09:00→11:15)
--- NOTE | 2017-04-27 11:03 | SOAPPROG ---
SOAP Progress Note Assessment/Plan: Assessment: Bipolar Mood Disorder, MRE Manic (v mixed) [place] carbonate at usual effective dose. Still has elevated and irritable mood. Encouraging increased doses of risperidone to help improve mood. Add a soporific to help sleep. Hypertension BP better. Has been low. Will start decreasing dose of clonidine. Hyperparathyroidism Repeat calcium normal. Elevated calcium and PTH may have been transient. Can pursue repeat in outpatient setting. Menopause No treatment Headache Minimal use of NSAIDs, on lithium. OK for prn dose of tramadol. STC Done Plan: Continue lithium carbonate to 1200 mg BID Change risperidone to 1 mg AM. Taper clonidine to 0.1 mg BID [place] level zolpidem 5 mg QHS tramadol 50 mg BID prn headache 04/27/17 11:08 Subjective: "When I sleep, I sleep soundly." Slept 3.5 hours last night. Thinks she is sleeping adequately. Had questions about her medications and her headache. Asks about a "hemorrhage. " Reassured that she remains intact neurologically, so no evidence to support a CVA. Suspicious about outpatient caregivers, and about inpatient care. Suspicious that clonidine is not a good medication for her, but not because of ill effects , because of what she read on information sheets. Complains of headache today. Objective: Vital Signs Temp Pulse Resp BP Pulse Ox 36.4 C 50 L 16 123/65 H 99 04/27/17 00:30 04/27/17 00:30 04/27/17 00:30 04/27/17 08:39 04/27/17 00:30 Laboratory Results 04/24/17 06:40 Medications Generic Name Dose Route Start Last Admin Trade Name Kevin PRN Reason Stop Dose Admin [place] Carbonate 1,200 mg 04/23/17 13:17 04/27/17 08:36 Lithobid PO 10/17/17 20:59 1,200 mg BID [facility] Clonidine 0.1 mg 04/26/17 10:53 04/27/17 08:39 Catapres PO 10/17/17 15:59 0.1 mg TID [facility] Enalapril Maleate 10 mg 04/21/17 14:45 04/27/17 08:39 Vasotec PO 10/18/17 14:44 10 mg DAILY [facility] Risperidone 0.5 mg 04/27/17 09:00 04/27/17 08:40 Risperdal PO 10/24/17 08:59 0.5 mg DAILY [facility] Selected Entries 04/26/17 04/26/17 04/27/17 16:00 21:29 00:30 Blood Pressure 110/57 L 131/63 H 140/71 H 04/27/17 08:39 Blood Pressure 123/65 H MSE Awake, alert, casually but a little oddly dressed Speech is still pressured with increased flow though speed of speech is reasonable Irritable today. Paranoid about medications, particularly clonidine. Reassured that with excellent BPs we are trying to decrease clonidine. Mood good, affect elevated and irritable, so mood and affect remain incongruent Lacks insight, lacks judgment ICD10 Worksheet Patient Problems: Problems Problem Status Onset Bipolar disorder Acute
[2017-04-27] MEDS ORDERED: ZOLPIDEM TARTRATE 5 MG TAB PO PRN (11:14)
[2017-04-27] MEDS: ACETAMINOPHEN 325 MG TAB PO PRN (22:46)
[2017-04-28] MEDS: LITHIUM CARBONATE ER 300 MG TAB PO SCH ×2 (09:02→17:45)
[2017-04-28] MEDS: ENALAPRIL MALEATE 5 MG TAB PO SCH (09:08)
--- NOTE | 2017-04-28 13:25 | SOAPPROG ---
SOAP Progress Note Assessment/Plan: Assessment: Bipolar Mood Disorder, MRE Manic (v mixed) [place] carbonate at usual effective dose. Still has elevated and irritable mood. Encouraging increased doses of risperidone to help improve mood. Add a soporific to help sleep. Hypertension BP better. Has been low. Discussed using clonidine in place of enalapril. This might get ADD and anti-HTN benefit from clonidine. Hyperparathyroidism Repeat calcium normal. Elevated calcium and PTH may have been transient. Can pursue repeat in outpatient setting. Menopause No treatment Headache Minimal use of NSAIDs, on lithium. OK for prn dose of tramadol. STC Done Plan: Continue lithium carbonate to 1200 mg BID Change risperidone to 2 mg AM. 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 Reports good sleep when she sleeps. She feels she is getting adequate sleep. Ms. Parmar is irritable again today. She is irritable about her medications and she is confused about her medications. She mixes up risperidone and enalapril. She tells me that her dose of enalapril was increased by 0.5 mg, when it was the risperidone that was increased by 0.5 mg. Even after I explain this too her she persists in thinking it was the enalapril that was changed. Also, she thinks the only reason that she was started on clonidine is that it can help attention problems. She does not seem to grasp that it also helps control HTN. Ms. Parmar continues to have an elevated mood and disorganized thought processes and abnormal thought content. Objective: Vital Signs Temp Pulse Resp BP Pulse Ox 36.3 C 49 L 14 123/72 H 100 04/28/17 07:50 04/28/17 07:50 04/28/17 07:50 04/28/17 07:50 04/28/17 07:50 Laboratory Results 04/24/17 06:40 Medications Generic Name Dose Route Start Last Admin Trade Name Freq PRN Reason Stop Dose Admin Risperidone 1 mg 04/27/17 11:15 04/28/17 09:07 Risperdal PO 10/24/17 08:59 1 mg DAILY [facility] Clonidine 0.1 mg 04/27/17 21:00 04/28/17 09:09 Catapres PO 10/24/17 20:59 0.1 mg BID [facility] Enalapril Maleate 10 mg 04/21/17 14:45 04/28/17 09:08 Vasotec PO 10/18/17 14:44 10 mg DAILY [facility] [place] Carbonate 1,200 mg 04/23/17 13:17 04/28/17 09:02 Lithobid PO 10/17/17 20:59 1,200 mg BID [facility] MSE Awake, alert, casually dressed. Grooming reasonable. Speech a little pressured, not rapid. Irritable affect. Mood "normal." Thought content with incorrect, almost paranoid thoughts around medications. [place] concerned about possible side effects of medications without ability to consider the benefits. Lacks insight, lacks judgment ICD10 Worksheet Patient Problems: Problems Problem Status Onset Bipolar disorder Acute
[2017-04-28] MEDS ORDERED: ENALAPRIL MALEATE 5 MG TAB PO SCH (13:40)
[2017-04-28] MEDS: ACETAMINOPHEN 325 MG TAB PO PRN (21:57)
[2017-04-29] MEDS: risperiDONE 0.5 MG TAB PO SCH (08:58)
[2017-04-29] MEDS: LITHIUM CARBONATE ER 300 MG TAB PO SCH ×2 (08:58→20:27)
[2017-04-29] MEDS: ACETAMINOPHEN 325 MG TAB PO PRN (12:09)
--- NOTE | 2017-04-29 14:14 | SOAPPROG ---
SOAP Progress Note Assessment/Plan: Assessment: Bipolar Mood Disorder, MRE Manic (v mixed) [place] carbonate at usual effective dose. Still has elevated and irritable mood. Encouraging increased doses of risperidone to help improve mood. Add a soporific to help sleep. Hypertension BP better. Has been low. Discussed using clonidine in place of enalapril. This might get ADD and anti-HTN benefit from clonidine. Hyperparathyroidism Repeat calcium normal. Elevated calcium and PTH may have been transient. Can pursue repeat in outpatient setting. Menopause No treatment Headache Minimal use of NSAIDs, on lithium. OK for prn dose of tramadol. STC Done Plan: Continue lithium carbonate to 1200 mg BID Change risperidone to 2 mg AM. Continue clonidine 0.2 mg BID and consider increasing for HTN or attention [place] level decrease enalapril to 5 mg daily and then discontinue 04/29/17 14:15 Subjective: "I have a few questions." Ms. Parmar has several questions about her medications. I have answered these questions several times for her, but we continue to review issues of medication interactions. She asks about the interaction between clonidine and lithium. We review that lithium and LUIS ARMANDO inhibitors are a more problematic combination. We review that my goal is to increase clonidine and taper off enalapril. We review her dose of risperidone including the effect on the pituitary and prolactin. We can follow this over time. Ms. Parmar is telling me today that she thought her dose of methylphenidate was helping her attention problems. I do not recommend restarting methylphenidate at this time, though the outpatient team can consider this when she is stable. Objective: Vital Signs Temp Pulse Resp BP Pulse Ox 36.5 C 60 12 145/73 H 99 04/29/17 06:23 04/29/17 09:39 04/29/17 09:39 04/29/17 09:39 04/29/17 09:39 Laboratory Results 04/24/17 06:40 Medications Generic Name Dose Route Start Last Admin Trade Name Freq PRN Reason Stop Dose Admin Clonidine 0.1 mg 04/27/17 21:00 04/29/17 08:58 Catapres PO 10/24/17 20:59 0.1 mg BID [facility] Enalapril Maleate 5 mg 04/28/17 13:40 04/29/17 08:57 Vasotec PO 02/19/18 14:44 5 mg DAILY [facility] [place] Carbonate 1,200 mg 04/23/17 13:17 04/29/17 08:58 Lithobid PO 10/17/17 20:59 1,200 mg BID [facility] Risperidone 2 mg 04/28/17 13:41 04/29/17 08:58 Risperdal PO 10/24/17 08:59 2 mg DAILY [facility] MSE Awake, alert, grooming fair, casual dress [employer] with increased pressure but not rapid today Linear thought processes, but overly concerned about her current medications Limited insight, poor judgment ICD10 Worksheet Patient Problems: Problems Problem Status Onset Bipolar disorder Acute
[2017-04-30] MEDS: LITHIUM CARBONATE ER 300 MG TAB PO SCH ×2 (09:02→19:11)
[2017-04-30] MEDS: risperiDONE 0.5 MG TAB PO SCH (09:03)
--- NOTE | 2017-04-30 13:18 | SOAPPROG ---
SOAP Progress Note Assessment/Plan: Assessment: Bipolar Mood Disorder, MRE Manic (v mixed) [place] carbonate at usual effective dose. Per outpatient Psychiatrist, effective lithium level is in the 1.0 to 1.4 range Sleep still inadequate. Thought content with perseverations around medications. Risperdal at 2 mg daily, consider increasing. Hypertension BP better. Has been low. Discussed using clonidine in place of enalapril. This might get ADD and anti-HTN benefit from clonidine. Consider increasing clonidine if BP too high. Hyperparathyroidism Repeat calcium normal. Elevated calcium and PTH may have been transient. Can pursue repeat in outpatient setting. Menopause No treatment Headache Minimal use of NSAIDs, on lithium. OK for prn dose of tramadol. STC Done Plan: Continue lithium carbonate to 1200 mg BID Continue risperidone to 2 mg AM. Clonidine 0.2 mg BID and consider increasing for HTN or attention [facility] 04/30/17 13:22 Subjective: "It should be noted how many times I've been poked." Slept 5 hours Reports she slept well. Total sleep hours still low, but Ms. Parmar feels she got adequate hours of sleep. Continues to discuss medications and need for medications. Questions lack of stimulant (methylphenidate) in regimen. We have discussed this repeatedly since admission. She agrees to take lithium and risperidone eventually. Objective: Vital Signs Temp Pulse Resp BP Pulse Ox 36.6 C 66 12 118/65 100 04/30/17 00:30 04/30/17 10:04 04/30/17 10:04 04/30/17 10:04 04/30/17 10:04 Laboratory Results 04/24/17 06:40 Medications Generic Name Dose Route Start Last Admin Trade Name Kevin PRN Reason Stop Dose Admin Risperidone 2 mg 04/28/17 13:41 04/30/17 09:03 Risperdal PO 10/24/17 08:59 2 mg DAILY [facility] Clonidine 0.2 mg 04/29/17 14:16 04/30/17 12:11 Catapres PO 10/24/17 20:59 0.2 mg BID [facility] [place] Carbonate 1,200 mg 04/23/17 13:17 04/30/17 09:02 Lithobid PO 10/17/17 20:59 1,200 mg BID [facility] MSE Awake, alert, casually dressed, grooming reasonable Speech normal in rate and tone but still modestly pressured thought processes linear, but continues to ask same questions about medications and possible interactions grandiose thought content lacks insight and judgment Laboratory Tests 04/24/17 06:40 Estimated GFR > 60 [place] 1.0 ICD10 Worksheet Patient Problems: Problems Problem Status Onset Bipolar disorder Acute
[2017-04-30] MEDS: ACETAMINOPHEN 325 MG TAB PO PRN (15:07)
[2017-05-01] MEDS: ACETAMINOPHEN 325 MG TAB PO PRN (04:21)
[2017-05-01] MEDS: LITHIUM CARBONATE ER 300 MG TAB PO SCH (08:33)
[2017-05-01] MEDS: risperiDONE 0.5 MG TAB PO SCH (08:36)
[2017-05-01 11:02] LABS: LITHIUM 1.7 mEq/L (0.6-1.2)
--- NOTE | 2017-05-01 14:43 | SOAPPROG ---
SOAP Progress Note Assessment/Plan: Assessment: Per Dr. Verde's SOAP note on 04/30/17: Assessment: Bipolar Mood Disorder, MRE Manic (v mixed) [place] carbonate at usual effective dose. Per outpatient Psychiatrist, effective lithium level is in the 1.0 to 1.4 range Sleep still inadequate. Thought content with perseverations around medications. Risperdal at 2 mg daily, consider increasing. Hypertension BP better. Has been low. Discussed using clonidine in place of enalapril. This might get ADD and anti-HTN benefit from clonidine. Consider increasing clonidine if BP too high. Hyperparathyroidism Repeat calcium normal. Elevated calcium and PTH may have been transient. Can pursue repeat in outpatient setting. Menopause No treatment Headache Minimal use of NSAIDs, on lithium. OK for prn dose of tramadol. STC Done Plan: Continue lithium carbonate to 1200 mg BID Continue risperidone to 2 mg AM. Clonidine 0.2 mg BID and consider increasing for HTN or attention STC New Plan: 05/01/17 14:36 1. [place] level this AM was 1.7. MD verified this was a trough level. Last dose given at 1911 on 04/30/17 and blood draw at 0700 on 05/01/17. 2. Will hold lithium dose this HS and restart [place] ER 600mg PO BID on . Will repeat lithium level in 2 days. 3. Will d/c clonidine since it has risk of decreasing HR as well as BP. Patient' s HR was 50 this AM, and has been consistently low (avg about 60) since admission. Would not recommend LUIS ARMANDO inhibitor since she is also on lithium and recently toxic. Suggest beta meliton. Also, patient has no s/s of ADHD that are apparent to this MD. Of course, until patient's mood is more stable and her thought process is more organized and patient's is not paranoid, it will be difficult to determine extent of any attention issues. Recommend holding off prescribing for this problem until more accurate assessment can be made. 4. Continue Risperidone for psychotic sxs, mostly paranoid delusions. No increase in dose is warranted at this time. She has been titrated quickly to her current dose and may need more time for its effects to be evaluated. Subjective: Met with patient, reviewed chart and discussed with staff. Patient was pleasant , bright affect, cooperative. She did not exhibit s/s of pressured speech, racing thoughts, elevated or elated mood, decreased need for sleep (she slept 6 hrs last night), or increase in goal-directed activity. Patient reports she had several blisters on her feet when she came to ED, but they have gone away now. She perseverates about her work situation. She admits she didn't go to work for at least 3 days prior to admit b/c she thought her colleagues were talking negatively about her behind her back. Patient is still concerned that her colleagues don't like her and she is worried they are still "gossiping" about her. She also thought her roommates were stealing her medications. Even though she appears less suspicious and paranoid now, she is still clearly worried about whether or not to go back to work. She asks MD to complete some [facility] paperwork, but is a little suspicious "what it's for." MD tries to explain it is to protect her job, and later patient comes back to tell MD, "I think it's good to fill out that paperwork....my friends were trying to help me." MD reassures her that is the case. Objective: Vital Signs Temp Pulse Resp BP Pulse Ox 36.4 C 50 L 16 136/70 H 98 05/01/17 07:37 05/01/17 07:37 05/01/17 07:37 05/01/17 07:37 05/01/17 07:37 Laboratory Results 04/24/17 06:40 MSE: Tall, well-groomed, calm, cooperative, slightly suspicious, but improving. Affect: Euthymic Mood: "Good" TP: Tangential, disorganized TC: Less paranoid, but still suspicious, no AH/VH, no SI/HI Insight/Judgment: Impaired - Time Spent With Patient Time Spent With Patient: 25" - Pending Discharge Pending Discharge Within 24 Hours: No ICD10 Worksheet Patient Problems: Problems Problem Status Onset Bipolar disorder Acute [place] toxicity Acute Psychosis Acute - ICD10 Problem Qualifiers (1) Psychosis Qualifiers: Psychosis type: unspecified psychosis type Schizoaffective disorder type: S Schizophrenia type: S Qualified Code(s): F29 - Unspecified psychosis not due to a substance or known physiological condition (2) [place] toxicity Qualifiers: Encounter type: E Injury intent: I
[2017-05-01] MEDS: MELATONIN 3 MG TAB PO SCH (21:00)
[2017-05-02] MEDS: ACETAMINOPHEN 325 MG TAB PO PRN ×2 (03:33→20:57)
[2017-05-02] MEDS: LITHIUM CARBONATE ER 300 MG TAB PO SCH ×2 (08:35→20:26)
[2017-05-02] MEDS: risperiDONE 2 MG TAB PO SCH (08:39)
--- NOTE | 2017-05-02 14:11 | SOAPPROG ---
SOAP Progress Note Assessment/Plan: Assessment: Per Dr. Verde's SOAP note on 04/30/17: Assessment: Bipolar Mood Disorder, MRE Manic (v mixed) [place] carbonate at usual effective dose. Per outpatient Psychiatrist, effective lithium level is in the 1.0 to 1.4 range Sleep still inadequate. Thought content with perseverations around medications. Risperdal at 2 mg daily, consider increasing. Hypertension BP better. Has been low. Discussed using clonidine in place of enalapril. This might get ADD and anti-HTN benefit from clonidine. Consider increasing clonidine if BP too high. Hyperparathyroidism Repeat calcium normal. Elevated calcium and PTH may have been transient. Can pursue repeat in outpatient setting. Menopause No treatment Headache Minimal use of NSAIDs, on lithium. OK for prn dose of tramadol. STC Done Plan: Continue lithium carbonate to 1200 mg BID Continue risperidone to 2 mg AM. Clonidine 0.2 mg BID and consider increasing for HTN or attention STC New Plan: 05/01/17 14:36 1. [place] level this AM was 1.7. MD verified this was a trough level. Last dose given at 1911 on 04/30/17 and blood draw at 0700 on 05/01/17. 2. Will hold lithium dose this HS and restart [place] ER 600mg PO BID on . Will repeat lithium level in 2 days. 3. Will d/c clonidine since it has risk of decreasing HR as well as BP. Patient' s HR was 50 this AM, and has been consistently low (avg about 60) since admission. Would not recommend LUIS ARMANDO inhibitor since she is also on lithium and recently toxic. Suggest beta meliton. Also, patient has no s/s of ADHD that are apparent to this MD. Of course, until patient's mood is more stable and her thought process is more organized and patient's is not paranoid, it will be difficult to determine extent of any attention issues. Recommend holding off prescribing for this problem until more accurate assessment can be made. 4. Continue Risperidone for psychotic sxs, mostly paranoid delusions. No increase in dose is warranted at this time. She has been titrated quickly to her current dose and may need more time for its effects to be evaluated. 05/02/17 14:07 Plan: 1. Restarted lithium at lower dose 600mg BID 2. Hold BP meds for now. BP was 126/77 and HR was 58 this AM. Will continue to monitor whether patient needs BP med or can f/u with PCP. 3. Still disorganized, but not overtly delusional. May need higher dose of Risperdal eventually. May need collateral information about patient's baseline cognitive function. 4, FMLA paperwork completed at patient's request and left with CC. Subjective: Met with patient and discussed with staff. Patient was initially happy about d/ c of clonidine b/c she didn't want to take BP meds, stating "I'm too young to need blood pressure meds." MD explained that the goal was to control her BP as there are significant health risks associated with HTN. Patient was very tangential and illogical at times, talking about "why couldn't they enter the right lithium level the first time." She did not understand that her level was redrawn b/c she had been off her lithium when she initially presented to the ED. At one point, patient started talking about "how much oxygen do I get in this building" completely off topic. It wasn't clear whether she was actually worried about asphyxiating or whether she meant to say she wanted to have access to outdoors so she could get fresh air. Patient did not seem worried or anxious about getting enough oxygen, so maybe her concern was the latter. She couldn't clarify when asked. completed FMLA paperwork and left it with CC. Objective: Vital Signs Temp Pulse Resp BP Pulse Ox 36.6 C 58 L 15 126/77 H 97 05/02/17 08:05 05/02/17 08:05 05/02/17 08:05 05/02/17 08:05 05/02/17 08:05 Laboratory Results 04/24/17 06:40 MSE: tall, well-groomed, pleasant and appropriate. Affect: Euthymic Mood: "Good " TP: Tangential, disorganized, illogical TC: Denies any AH/VH, does not appear to respond to IS/ES, exhibits paranoid delusions, denies any SI/HI Insight/Judgment: Poor - Time Spent With Patient Time Spent With Patient: 25" - Pending Discharge Pending Discharge Within 24 Hours: No ICD10 Worksheet Patient Problems: Problems Problem Status Onset Bipolar disorder Acute [place] toxicity Acute Psychosis Acute - ICD10 Problem Qualifiers (1) Psychosis Qualifiers: Psychosis type: unspecified psychosis type Schizoaffective disorder type: S Schizophrenia type: S Qualified Code(s): F29 - Unspecified psychosis not due to a substance or known physiological condition (2) [place] toxicity Qualifiers: Encounter type: E Injury intent: I
[2017-05-02] MEDS: MELATONIN 3 MG TAB PO SCH (20:26)
[2017-05-03] MEDS: ACETAMINOPHEN 325 MG TAB PO PRN ×3 (04:58→20:46)
[2017-05-03] MEDS: risperiDONE 2 MG TAB PO SCH (08:25)
[2017-05-03] MEDS: LITHIUM CARBONATE ER 300 MG TAB PO SCH ×2 (08:25→20:44)
--- NOTE | 2017-05-03 13:42 | SOAPPROG ---
SOAP Progress Note Assessment/Plan: Assessment: Plan: 05/03/17 13:42 Appears improved over admission. Will CCM, monitor. Subjective: Pt seen, discussed with staff. Chart reviewed. She is anxious to talk to me at first. Questions whether I know her case. I explain that I am just getting to know her and she is clearly suspicious of my intentions. She calms later and is able to interact appropriately. She is wearing a pt gown over her clothes to go to [employer] [facility] and is very concerned that she will miss too much of it while she is talking to me. She asks about the d/c plan and states she believes she is ready to go. Objective: Vital Signs Temp Pulse Resp BP Pulse Ox 36.5 C 65 16 154/76 H 100 05/03/17 08:00 05/03/17 08:00 05/03/17 08:00 05/03/17 08:00 05/03/17 08:00 Laboratory Results 04/24/17 06:40 MSE: Moderately anxious, guarded. Affect is constricted, stable. Mood is "a little nervous." TP is disorganized at times with some tangentiality. TC reveals some paranoia, possible IOR's. - Time Spent With Patient Time Spent With Patient: 25" ICD10 Worksheet Patient Problems: Problems Problem Status Onset Bipolar disorder Acute [place] toxicity Acute Psychosis Acute
[2017-05-03] MEDS: MELATONIN 3 MG TAB PO SCH (20:44)
[2017-05-04] MEDS: ACETAMINOPHEN 325 MG TAB PO PRN ×2 (03:53→10:43)
[2017-05-04] MEDS: risperiDONE 2 MG TAB PO SCH (08:33)
[2017-05-04] MEDS: LITHIUM CARBONATE ER 300 MG TAB PO SCH ×2 (08:33→20:05)
[2017-05-04] MEDS ORDERED: ACETAMINOPHEN 500 MG TAB PO PRN (14:43)
--- NOTE | 2017-05-04 14:51 | SOAPPROG ---
SOAP Progress Note Assessment/Plan: Assessment: 52yoCF with BMD/nicolás admitted in manic/psychotic, had Ritalin added 01/2017 which may have contributed, now on STC and restarted on outpt Li/Risp but no Ritalin. 05/04/17 14:44 per staff, slept 7.5hr. reports sleeping well through night. asking about medications, and Li level, and about headaches she has been having intermittently including at night upon awakening. thinks she feels fuzzy headed in AM due to 2mg Risperdal when typically on 0.5mg qam as outpt. Also c/o breast tenderness, and drowsy feeling she attributes to Risperdal. sees cosmetics demonstrator in Jun as outpt. states she is postmenopausal since 2012. Glad to be off BP meds, recently d/cd. MSE: casually dressed, neatly kempt, good eye contact, nml speech rate/vol, nml psychom activity, mood "pretty good". affect appropriate range/euthymic. more organized thoughts, more linear and logical conversation, asking more appropriate questions, +engaging and normally conversant, no agitation or irritability, expressing insight into need for meds. denied ah/vh or any si/hi. PLAN: -Check Li level 05/06 in AM. -Discussed Risperdal dosing options, to adjust scheduling but continue for now at 2mg daily since overall improved clinically- doesn't want 2mg all at hs b/c feels she needs some during day, would like 0.5mg qd and 1.5mg qhs, denies , EPS or other s/e. states she has endocrine f/u in Jun 2017. -Incr prn tylenol to 1000mg tid prn from 650mg prn for H/A. no NSAIDs b/c on Li. monitor frequency, denies any other associated sxs (vision changes, unsteady gait, mm soreness or incontinence). had recent med changes with Li and antiHTN. will follow and consider hospitalist input if indicated. Objective: Vital Signs Temp Pulse Resp BP Pulse Ox 36.3 C 56 L 16 148/91 H 100 05/04/17 07:45 05/04/17 07:45 05/04/17 07:45 05/04/17 07:45 05/04/17 07:45 Laboratory Results 04/24/17 06:40 - Time Spent With Patient Time Spent With Patient: 35min - Pending Discharge Pending Discharge Within 24 Hours: No Pending Discharge Within 48 Hours: No ICD10 Worksheet Patient Problems: Problems Problem Status Onset Bipolar disorder Acute [place] toxicity Acute Psychosis Acute
[2017-05-04] MEDS: MELATONIN 3 MG TAB PO SCH (20:06)
[2017-05-04] MEDS: ACETAMINOPHEN 500 MG TAB PO PRN (20:38)
[2017-05-05] MEDS: LITHIUM CARBONATE ER 300 MG TAB PO SCH ×2 (08:34→17:28)
[2017-05-05] MEDS ORDERED: risperiDONE 0.25 MG TAB PO SCH ×3 (09:00→21:00)
[2017-05-05] MEDS ORDERED: risperiDONE 0.25 MG TAB PO ONE (16:30)
[2017-05-05] MEDS ORDERED: risperiDONE 1 MG TAB ONE (17:08)
[2017-05-05] MEDS: risperiDONE 1 MG TAB PO SCH (20:23)
[2017-05-05] MEDS: MELATONIN 3 MG TAB PO SCH (20:23)
--- NOTE | 2017-05-05 21:13 | SOAPPROG ---
SOAP Progress Note Assessment/Plan: Assessment: 52yoCF with BMD/nicolás admitted in manic/psychotic, had Ritalin added 01/2017 which may have contributed, now on STC and restarted on outpt Li/Risp but no Ritalin. 05/04/17 14:44 per staff, slept 7.5hr. reports sleeping well through night. asking about medications, and Li level, and about headaches she has been having intermittently including at night upon awakening. thinks she feels fuzzy headed in AM due to 2mg Risperdal when typically on 0.5mg qam as outpt. Also c/o breast tenderness, and drowsy feeling she attributes to Risperdal. sees power systems engineer in Jun as outpt. states she is postmenopausal since 2012. Glad to be off BP meds, recently d/cd. MSE: casually dressed, neatly kempt, good eye contact, nml speech rate/vol, nml psychom activity, mood "pretty good". affect appropriate range/euthymic. more organized thoughts, more linear and logical conversation, asking more appropriate questions, +engaging and normally conversant, no agitation or irritability, expressing insight into need for meds. denied ah/vh or any si/hi. PLAN: -Check Li level 05/06 in AM. -Discussed Risperdal dosing options, to adjust scheduling but continue for now at 2mg daily since overall improved clinically- doesn't want 2mg all at hs b/c feels she needs some during day, would like 0.5mg qd and 1.5mg qhs, denies , EPS or other s/e. states she has endocrine f/u in Jun 2017. -Incr prn tylenol to 1000mg tid prn from 650mg prn for H/A. no NSAIDs b/c on Li. monitor frequency, denies any other associated sxs (vision changes, unsteady gait, mm soreness or incontinence). had recent med changes with Li and antiHTN. will follow and consider hospitalist input if indicated. 05/05/17 12:15 per staff, slept 6.5hr. seemed with some confusion, staff reported pt was requesting tampons altho postmenopausal, also reported still breast tenderness and cold/allergy sxs Pt denied physical c/o on interview except "after we talked about it yesterday I noticed a small tremor in my jaw", then asked about power of suggestion to induce physical symptoms b/c noted no jaw tremor before. not noted clinically altho w/mild facial grimacing w/jaw retraction noted on prior interviews since admit. ?baseline. t/a ritalin having helped with her ADHD, but wondering if this contributed to her nicolás relapse. "maybe ritalin made me worse." But then talked of + effects of ritalin, incl incr self-esteem and decr worry, and felt "slimmer and better" about self. Educated on Ritalin effects, and advised not resuming such medication with her BMD dx, as timeframe does correlate with her relapse, and would need to t/w her outpt psych to further eval and manage sxs. still c/o feeling "lethargic and out of focus, like my brain is working too hard ", althjony only had 0.5mg risperdal instead of 2mg this am, adding that she historically noted AM risperdal helped her brain work less hard. Agreed to try Risperdal divided 1mg BID. Denied requesting tampons as reported by staff, states she had tiny bit spotting when showering. Li level pending for AM. MSE: overall more organized, linear, reality based and pleasantly conversant without irritability/lability, but still with some perseverations and inconsistencies in thought processes. mood "fine", affect controlled, no si/hi or any ah/vh. incr insight PLAN: Li level in AM. per records, typically needs higher levels for stability. f/u HTN, may need restart med. change risperdal to 1mg bid. cont Li 600mg bid. okay AG privs Objective: Vital Signs Temp Pulse Resp BP Pulse Ox 36.5 C 78 14 145/81 H 96 05/05/17 06:16 05/05/17 06:16 05/05/17 06:16 05/05/17 06:16 05/05/17 06:16 Laboratory Results 04/24/17 06:40 - Time Spent With Patient Time Spent With Patient: 35min - Pending Discharge Pending Discharge Within 24 Hours: No Pending Discharge Within 48 Hours: No ICD10 Worksheet Patient Problems: Problems Problem Status Onset Bipolar disorder Acute [place] toxicity Acute Psychosis Acute
[2017-05-05] MEDS: ACETAMINOPHEN 500 MG TAB PO PRN (21:41)
[2017-05-06] MEDS: LITHIUM CARBONATE ER 300 MG TAB PO SCH (08:13)
[2017-05-06] MEDS: risperiDONE 1 MG TAB PO SCH ×2 (08:13→20:35)
[2017-05-06 10:26] LABS: LITHIUM 0.7 mEq/L (0.6-1.2)
--- NOTE | 2017-05-06 12:45 | SOAPPROG ---
SOAP Progress Note Assessment/Plan: Assessment: 52yoCF with BMD/nicolás admitted in manic/psychotic, had Ritalin added 01/2017 which may have contributed, now on STC and restarted on outpt Li/Risp but no Ritalin. 05/04/17 14:44 per staff, slept 7.5hr. reports sleeping well through night. asking about medications, and Li level, and about headaches she has been having intermittently including at night upon awakening. thinks she feels fuzzy headed in AM due to 2mg Risperdal when typically on 0.5mg qam as outpt. Also c/o breast tenderness, and drowsy feeling she attributes to Risperdal. sees veneer sorter in Jun as outpt. states she is postmenopausal since 2012. Glad to be off BP meds, recently d/cd. MSE: casually dressed, neatly kempt, good eye contact, nml speech rate/vol, nml psychom activity, mood "pretty good". affect appropriate range/euthymic. more organized thoughts, more linear and logical conversation, asking more appropriate questions, +engaging and normally conversant, no agitation or irritability, expressing insight into need for meds. denied ah/vh or any si/hi. PLAN: -Check Li level 05/06 in AM. -Discussed Risperdal dosing options, to adjust scheduling but continue for now at 2mg daily since overall improved clinically- doesn't want 2mg all at hs b/c feels she needs some during day, would like 0.5mg qd and 1.5mg qhs, denies , EPS or other s/e. states she has endocrine f/u in Jun 2017. -Incr prn tylenol to 1000mg tid prn from 650mg prn for H/A. no NSAIDs b/c on Li. monitor frequency, denies any other associated sxs (vision changes, unsteady gait, mm soreness or incontinence). had recent med changes with Li and antiHTN. will follow and consider hospitalist input if indicated. 05/05/17 12:15 per staff, slept 6.5hr. seemed with some confusion, staff reported pt was requesting tampons altho postmenopausal, also reported still breast tenderness and cold/allergy sxs Pt denied physical c/o on interview except "after we talked about it yesterday I noticed a small tremor in my jaw", then asked about power of suggestion to induce physical symptoms b/c noted no jaw tremor before. not noted clinically altho w/mild facial grimacing w/jaw retraction noted on prior interviews since admit. ?baseline. t/a ritalin having helped with her ADHD, but wondering if this contributed to her nicolás relapse. "maybe ritalin made me worse." But then talked of + effects of ritalin, incl incr self-esteem and decr worry, and felt "slimmer and better" about self. Educated on Ritalin effects, and advised not resuming such medication with her BMD dx, as timeframe does correlate with her relapse, and would need to t/w her outpt psych to further eval and manage sxs. still c/o feeling "lethargic and out of focus, like my brain is working too hard ", althjony only had 0.5mg risperdal instead of 2mg this am, adding that she historically noted AM risperdal helped her brain work less hard. Agreed to try Risperdal divided 1mg BID. Denied requesting tampons as reported by staff, states she had tiny bit spotting when showering. Li level pending for AM. MSE: overall more organized, linear, reality based and pleasantly conversant without irritability/lability, but still with some perseverations and inconsistencies in thought processes. mood "fine", affect controlled, no si/hi or any ah/vh. incr insight PLAN: Li level in AM. per records, typically needs higher levels for stability. f/u HTN, may need restart med. change risperdal to 1mg bid. cont Li 600mg bid. 05/06/17 12:30 slept 7hr. attending gps. Li level 0.7 on 600mg bid. reviewed Li dosing since admit: 04/20: 600mg am 04/21: 600/900 x 2d 04/23: incr to 900/1200 04/24: level 1.0. incr to 1200mg bid 05/01: level 1.7 1200mg x1 05/02: 600mg bid 05/06: level 0.7 Denied med s/e, altho still c/o about Risperdal, feeling it is causing "a little foggy" feeling. "I'm not convinced the 2mg is the right dose", but agrees to continue at 1mg bid for now until t/w outpt provider. no c/o any headaches today or sxs. Glad her therapist visited yesterday. mood "good", volunteers that she is happy to stay for a few more days in hosp if needed until meds are right. affect euthymic, nml speech rate/vol, good eye contact, tc/tp- more linear, goal directed, some perseveration on meds and somatic concerns, but no overt delusional thoughts, denied ah/vh or si/hi. i/j improved. PLAN: on STC. AG privs today. Increase Li to 600/900, recheck level Mon. outpt dose in past was 1200mg bid. concern that level of 0.7 too low and increases pt risk of relapse b/c historically has needed levels 1.0-1.4 per outpt md. also w/pt c/o Risperdal dosing at 2mg, concern for med noncompliance after d/c altho states she will stay with 1mg bid until t/w outpt psych. T/W hospitalist about BP med options Pt has f/u with outpt psychiatrist 05/11, and therapist next week states she has endocrine appt annually, scheduled 06/2017. will f/u if pt has PCP for BP f/u. has had decr freq of h/a's recently Anticipate d/c soon, with f/u Li level as outpt Concern for where she'd go since friend out of town through weekend, and concerned about being without extra support/structure Objective: Vital Signs Temp Pulse Resp BP Pulse Ox 36.3 C 58 L 13 140/88 H 97 05/06/17 07:34 05/06/17 07:34 05/06/17 07:34 05/06/17 07:34 05/06/17 07:34 Laboratory Results 04/24/17 06:40 - Time Spent With Patient Time Spent With Patient: 35min - Pending Discharge Pending Discharge Within 24 Hours: No Pending Discharge Within 48 Hours: No ICD10 Worksheet Patient Problems: Problems Problem Status Onset Bipolar disorder Acute [place] toxicity Acute Psychosis Acute
--- NOTE | 2017-05-06 16:08 | SOAPPROG ---
SOAP Progress Note Assessment/Plan: Assessment: * Hypertension. Most antihypertensives have interactions with lithium. If she had not had a history of toxicity it would be reasonable to start any antihypertensive and monitor levels, especially with any change in the antihypertensive dose. Amiloride is a diuretic with no known effect on lithium levels however is also not 1st line in the management of hypertension. Amlodipine would be a good choice also though there is some caution regarding combined neurotoxic effects of the 2 medications. As her blood pressure is not markedly elevated is worthwhile to try to improve her blood pressure without medications. Advised exercise 30 minutes a day most days of the week at a moderate pace for instance very brisk walking. She could begin exercise on the exercise bike on the inpatient behavioral health unit. Also advised dietary modifications. Provided an 8 page patient education handout on lifestyle management of blood pressure including the DASH diet, found on the [facility] web site. Advise initiating the DASH diet if possible while she is on the Inpatient Behavioral Health unit. Ordered belt operator consult. 05/06/17 16:09 Subjective: ATSP regarding hypertension. [place] inhibitor was discontinued due to interaction with lithium. She had bradycardia and hypotension with clonidine and with a beta meliton. Blood pressure has been elevated since 05/03/2017 in the range of 134-154/76-88. Objective: Vital Signs Temp Pulse Resp BP Pulse Ox 36.3 C 58 L 13 140/88 H 97 05/06/17 07:34 05/06/17 07:34 05/06/17 07:34 05/06/17 07:34 05/06/17 07:34 Laboratory Results 04/24/17 06:40 - Time Spent With Patient Time Spent With Patient: 25 minutes floor time today including record review, discussion with patient, and provision of patient education materials. Physical Exam - Physical Exam General Appearance: WD/WN, alert, no apparent distress Respiratory: No respiratory distress, No accessory muscle use Cardiac/Chest: No edema Skin: normal color, warm/dry Neuro/Psych: no motor/sensory deficits, alert, normal mood/affect, oriented x 3 ICD10 Worksheet Patient Problems: Problems Problem Status Onset Bipolar disorder Acute [place] toxicity Acute Psychosis Acute
[2017-05-06] MEDS: BENZTROPINE MESYLATE 1 MG TAB PO PRN ×2 (16:48→18:36)
[2017-05-06] MEDS: MELATONIN 3 MG TAB PO SCH (20:35)
[2017-05-06] MEDS: LITHIUM CARBONATE ER 450 MG TAB PO SCH (20:36)
[2017-05-06] MEDS: ACETAMINOPHEN 500 MG TAB PO PRN (22:04)
[2017-05-07] MEDS: risperiDONE 1 MG TAB PO SCH (07:52)
[2017-05-07] MEDS: LITHIUM CARBONATE ER 300 MG TAB PO SCH (07:52)
[2017-05-07] MEDS: BENZTROPINE MESYLATE 1 MG TAB PO PRN ×2 (14:09→16:52)
[2017-05-07] MEDS: LITHIUM CARBONATE ER 450 MG TAB PO SCH (20:58)
[2017-05-07] MEDS: risperiDONE 0.5 MG TAB PO SCH (20:58)
[2017-05-07] MEDS: MELATONIN 3 MG TAB PO SCH (20:58)
[2017-05-07] MEDS: ACETAMINOPHEN 500 MG TAB PO PRN (23:35)
[2017-05-08] MEDS: risperiDONE 1 MG TAB PO SCH (07:47)
[2017-05-08] MEDS: LITHIUM CARBONATE ER 300 MG TAB PO SCH (07:47)
[2017-05-08] MEDS: BENZTROPINE MESYLATE 1 MG TAB PO PRN (07:49)
--- NOTE | 2017-05-08 11:58 | SOAPPROG ---
SOAP Progress Note Assessment/Plan: Assessment: 52yoCF with BMD/nicolás admitted in manic/psychotic, had Ritalin added 01/2017 which may have contributed, now on STC and restarted on outpt Li/Risp but no Ritalin. 05/04/17 14:44 per staff, slept 7.5hr. reports sleeping well through night. asking about medications, and Li level, and about headaches she has been having intermittently including at night upon awakening. thinks she feels fuzzy headed in AM due to 2mg Risperdal when typically on 0.5mg qam as outpt. Also c/o breast tenderness, and drowsy feeling she attributes to Risperdal. sees delivery rn in Jun as outpt. states she is postmenopausal since 2012. Glad to be off BP meds, recently d/cd. MSE: casually dressed, neatly kempt, good eye contact, nml speech rate/vol, nml psychom activity, mood "pretty good". affect appropriate range/euthymic. more organized thoughts, more linear and logical conversation, asking more appropriate questions, +engaging and normally conversant, no agitation or irritability, expressing insight into need for meds. denied ah/vh or any si/hi. PLAN: -Check Li level 05/06 in AM. -Discussed Risperdal dosing options, to adjust scheduling but continue for now at 2mg daily since overall improved clinically- doesn't want 2mg all at hs b/c feels she needs some during day, would like 0.5mg qd and 1.5mg qhs, denies , EPS or other s/e. states she has endocrine f/u in Jun 2017. -Incr prn tylenol to 1000mg tid prn from 650mg prn for H/A. no NSAIDs b/c on Li. monitor frequency, denies any other associated sxs (vision changes, unsteady gait, mm soreness or incontinence). had recent med changes with Li and antiHTN. will follow and consider hospitalist input if indicated. 05/05/17 12:15 per staff, slept 6.5hr. seemed with some confusion, staff reported pt was requesting tampons altho postmenopausal, also reported still breast tenderness and cold/allergy sxs Pt denied physical c/o on interview except "after we talked about it yesterday I noticed a small tremor in my jaw", then asked about power of suggestion to induce physical symptoms b/c noted no jaw tremor before. not noted clinically altho w/mild facial grimacing w/jaw retraction noted on prior interviews since admit. ?baseline. t/a ritalin having helped with her ADHD, but wondering if this contributed to her nicolás relapse. "maybe ritalin made me worse." But then talked of + effects of ritalin, incl incr self-esteem and decr worry, and felt "slimmer and better" about self. Educated on Ritalin effects, and advised not resuming such medication with her BMD dx, as timeframe does correlate with her relapse, and would need to t/w her outpt psych to further eval and manage sxs. still c/o feeling "lethargic and out of focus, like my brain is working too hard ", althjony only had 0.5mg risperdal instead of 2mg this am, adding that she historically noted AM risperdal helped her brain work less hard. Agreed to try Risperdal divided 1mg BID. Denied requesting tampons as reported by staff, states she had tiny bit spotting when showering. Li level pending for AM. MSE: overall more organized, linear, reality based and pleasantly conversant without irritability/lability, but still with some perseverations and inconsistencies in thought processes. mood "fine", affect controlled, no si/hi or any ah/vh. incr insight PLAN: Li level in AM. per records, typically needs higher levels for stability. f/u HTN, may need restart med. change risperdal to 1mg bid. cont Li 600mg bid. 05/06/17 12:30 slept 7hr. attending gps. Li level 0.7 on 600mg bid. reviewed Li dosing since admit: 04/20: 600mg am 04/21: 600/900 x 2d 04/23: incr to 900/1200 04/24: level 1.0. incr to 1200mg bid 05/01: level 1.7 1200mg x1 05/02: 600mg bid 05/06: level 0.7 Denied med s/e, altho still c/o about Risperdal, feeling it is causing "a little foggy" feeling. "I'm not convinced the 2mg is the right dose", but agrees to continue at 1mg bid for now until t/w outpt provider. no c/o any headaches today or sxs. Glad her therapist visited yesterday. mood "good", volunteers that she is happy to stay for a few more days in hosp if needed until meds are right. affect euthymic, nml speech rate/vol, good eye contact, tc/tp- more linear, goal directed, some perseveration on meds and somatic concerns, but no overt delusional thoughts, denied ah/vh or si/hi. i/j improved. PLAN: on STC. AG privs today. Increase Li to 600/900, recheck level Mon. outpt dose in past was 1200mg bid. concern that level of 0.7 too low and increases pt risk of relapse b/c historically has needed levels 1.0-1.4 per outpt md. also w/pt c/o Risperdal dosing at 2mg, concern for med noncompliance after d/c altho states she will stay with 1mg bid until t/w outpt psych. T/W hospitalist about BP med options Pt has f/u with outpt psychiatrist 05/11, and therapist next week states she has endocrine appt annually, scheduled 06/2017. will f/u if pt has PCP for BP f/u. has had decr freq of h/a's recently Anticipate d/c soon, with f/u Li level as outpt Concern for where she'd go since friend out of town through weekend, and concerned about being without extra support/structure 05/07/17 11:50 late entry per staff, slept 8.5hr. Cogentin 0.5mg prn noted helpful for jaw tremor/ tightness. has AG. doing well, working on relapse prevention feels prn cogentin helped jaw tightness/tremor. discussed EPS and meds, decided to try decr Risperdal over w/e since uptitration was quite rapid in midst of acute manic state. will leave 0.5mg prn avail if needed. no other noted s/e. MSE: bright, engaging, casually dressed, nml speech rate/vol, good eye contact, tc/tp- linear, goal directed, organized and expressing good insight. no delusional thoughts, denied ah/vh or si/hi. i/j both improved. cognition intact. PLAN: change risperdal from 1mg bid to 1mg/0.5mg with 0.5mg prn and monitor for improvement in mild EPS of jaw. cont cogentin 0.5mg bid prn repeat Li level on Mon AM cont [place] 600/900 plan d/c [facility], has f/u Tues 05/11 on [facility], has [facility] Hospitalist eval and recommendations on HTN much appreciated. Objective: Vital Signs Temp Pulse Resp BP Pulse Ox 36.7 C 62 14 124/82 H 97 05/08/17 11:14 05/08/17 11:14 05/08/17 11:14 05/08/17 11:14 05/08/17 11:14 Laboratory Results 04/24/17 06:40 - Time Spent With Patient Time Spent With Patient: 35min - Pending Discharge Pending Discharge Within 24 Hours: No Pending Discharge Within 48 Hours: No ICD10 Worksheet Patient Problems: Problems Problem Status Onset Bipolar disorder Acute [place] toxicity Acute Psychosis Acute
[2017-05-08] MEDS: ACETAMINOPHEN 500 MG TAB PO PRN (13:31)
--- NOTE | 2017-05-08 15:04 | SOAPPROG ---
SOAP Progress Note Assessment/Plan: Assessment: Per Dr. Crandall' most recent note on 05/07/17: 05/07/17 11:50 late entry per staff, slept 8.5hr. Cogentin 0.5mg prn noted helpful for jaw tremor/ tightness. has AG. doing well, working on relapse prevention feels prn cogentin helped jaw tightness/tremor. discussed EPS and meds, decided to try decr Risperdal over w/e since uptitration was quite rapid in midst of acute manic state. will leave 0.5mg prn avail if needed. no other noted s/e. MSE: bright, engaging, casually dressed, nml speech rate/vol, good eye contact, tc/tp- linear, goal directed, organized and expressing good insight. no delusional thoughts, denied ah/vh or si/hi. i/j both improved. cognition intact. PLAN: change risperdal from 1mg bid to 1mg/0.5mg with 0.5mg prn and monitor for improvement in mild EPS of jaw. cont cogentin 0.5mg bid prn repeat Li level on Mon AM cont [place] 600/900 plan d/c [facility], has f/u Tues 05/11 on [facility], has [facility] priv[facility] Hospitalist eval and recommendations on HTN much appreciated. 05/08/17 15:01 Plan: 1. CCM - no changes to lithium dosing pending level on 05/10/17 2. Continue Rispderal at 1mg QAM and 0.5mg QHS - more than what she took prior to hospitalization, but patient was quite psychotic prior to admit and when MD saw her last w/e she still was disorganized, paranoid about returning to work and exhibited impaired reality testing and poor problem solving ability. She has improved significantly and is much more coherent and rational discussing her aftercare plan today. 3. Expect to d/c on Wednesday, check lithium level before d/c. Subjective: Met with patient, reviewed chart and discussed with staff. Patient is much more coherent, logical and goal-directed in conversation with MD today than she presented last weekend. She says, "I'm getting better every day." She says she plans to stay with friend, Damien, in [place] after discharge while she looks for her own place in [place]. She says she feels "more content" and more "stable" since admission. She denies any SI/HI, no AH/VH, no evidence of paranoia or delusions. Objective: Vital Signs Temp Pulse Resp BP Pulse Ox 36.7 C 62 14 124/82 H 97 05/08/17 11:14 05/08/17 11:14 05/08/17 11:14 05/08/17 11:14 05/08/17 11:14 Laboratory Results 04/24/17 06:40 MSE: Tall, appropriately groomed. Affect: Euthymic Mood: "Better" TP: More logical, linear and goal-directed TC: Denies any AH/VH, no evidence of paranoia or delusions, no SI/HI Insight/Judgment: Fair, Improved - Time Spent With Patient Time Spent With Patient: 25" - Pending Discharge Pending Discharge Within 48 Hours: Yes Pending Discharge Date: 05/10/17 (Likely to d/c on 05/10/17 to friend's house, f/ u with Dr. Clay on 05/11/17) Pending Discharge Time: 11:00 ICD10 Worksheet Patient Problems: Problems Problem Status Onset Bipolar disorder Acute [place] toxicity Acute Psychosis Acute - ICD10 Problem Qualifiers (1) Psychosis Qualifiers: Psychosis type: unspecified psychosis type Qualified Code(s): F29 - Unspecified psychosis not due to a substance or known physiological condition (2) [place] toxicity
[2017-05-08] MEDS: risperiDONE 0.5 MG TAB PO SCH (20:28)
[2017-05-08] MEDS: MELATONIN 3 MG TAB PO SCH (20:29)
[2017-05-08] MEDS: LITHIUM CARBONATE ER 450 MG TAB PO SCH (20:29)
[2017-05-09] MEDS: LITHIUM CARBONATE ER 300 MG TAB PO SCH (08:02)
[2017-05-09] MEDS: risperiDONE 1 MG TAB PO SCH (08:03)
[2017-05-09] MEDS: ACETAMINOPHEN 500 MG TAB PO PRN ×2 (09:58→21:16)
--- NOTE | 2017-05-09 12:29 | SOAPPROG ---
SOAP Progress Note Assessment/Plan: Assessment: Per Dr. Crandall' most recent note on 05/07/17: 05/07/17 11:50 late entry per staff, slept 8.5hr. Cogentin 0.5mg prn noted helpful for jaw tremor/ tightness. has AG. doing well, working on relapse prevention feels prn cogentin helped jaw tightness/tremor. discussed EPS and meds, decided to try decr Risperdal over w/e since uptitration was quite rapid in midst of acute manic state. will leave 0.5mg prn avail if needed. no other noted s/e. MSE: bright, engaging, casually dressed, nml speech rate/vol, good eye contact, tc/tp- linear, goal directed, organized and expressing good insight. no delusional thoughts, denied ah/vh or si/hi. i/j both improved. cognition intact. PLAN: change risperdal from 1mg bid to 1mg/0.5mg with 0.5mg prn and monitor for improvement in mild EPS of jaw. cont cogentin 0.5mg bid prn repeat Li level on Wed AM cont [place] 600/900 plan d/c [facility], has f/u Tues 05/11 on [facility], has [facility] privs Hospitalist eval and recommendations on HTN much appreciated. 05/08/17 15:01 Plan: 1. CCM - no changes to lithium dosing pending level on 05/10/17 2. Continue Rispderal at 1mg QAM and 0.5mg QHS - more than what she took prior to hospitalization, but patient was quite psychotic prior to admit and when saw her last w/e she still was disorganized, paranoid about returning to work and exhibited impaired reality testing and poor problem solving ability. She has improved significantly and is much more coherent and rational discussing her aftercare plan today. 3. Expect to d/c on Wednesday, check lithium level before d/c. 05/09/17 12:22 Plan: 1. No change to treatment plan 2. Scheduled to have lithium level in AM, will get HS dose of lithium at 1800 3. D/C tomorrow 4. Will order Zyrtec and decongestant to relieve sinus pressure Subjective: Met with patient and discussed with staff. She is lying in bed c/o SELBY and sinus pressure. She says that even though she doesn't feel well physically, she is emotionally "really good." She is eager to discharge and looking forward to spending her day tomorrow running errands and visiting with her friend, Damien, in [place]. She does not exhibit any sxs of nicolás or psychosis at this time. She denies any thoughts, plan or intent to hurt himself. Objective: Vital Signs Temp Pulse Resp BP Pulse Ox 36.4 C 57 L 16 157/83 H 100 05/09/17 08:00 05/09/17 08:00 05/09/17 08:00 05/09/17 08:00 05/09/17 08:00 Laboratory Results 04/24/17 06:40 MSE: Lying in bed, c/o SELBY and sinus pressure. Affect: Euthymic Mood: "Good" TP : Linear, goal-directed TC: No SI/HI, no AH/VH, no paranoia or delusions Insight/Judgment: Fair - Time Spent With Patient Time Spent With Patient: 20" - Pending Discharge Pending Discharge Within 24 Hours: Yes Pending Discharge Date: 05/10/17 Pending Discharge Time: 11:00 ICD10 Worksheet Patient Problems: Problems Problem Status Onset Bipolar disorder Acute [place] toxicity Acute Psychosis Acute - ICD10 Problem Qualifiers (1) Psychosis Qualifiers: Psychosis type: unspecified psychosis type Qualified Code(s): F29 - Unspecified psychosis not due to a substance or known physiological condition (2) [place] toxicity
[2017-05-09] MEDS ORDERED: CETIRIZINE 10 MG TAB PO PRN (12:30)
[2017-05-09] MEDS ORDERED: PSEUDOEPHEDRINE HCL 30 MG TAB PO PRN (12:33)
[2017-05-09] MEDS ORDERED: ONDANSETRON DISINTEGRATING 4 MG TAB PO PRN (12:40)
[2017-05-09] MEDS: guaiFENesin 600 MG TAB.ER PO SCH ×4 (13:17→18:22)
[2017-05-09] MEDS: LITHIUM CARBONATE ER 450 MG TAB PO SCH (15:51)
[2017-05-09] MEDS: risperiDONE 0.5 MG TAB PO SCH (18:13)
[2017-05-09] MEDS: MELATONIN 3 MG TAB PO SCH (18:13)
[2017-05-10 06:11] VITALS: TEMP 97.7
[2017-05-10] MEDS: risperiDONE 1 MG TAB PO SCH (08:11)
[2017-05-10] MEDS: LITHIUM CARBONATE ER 300 MG TAB PO SCH (08:11)
[2017-05-10] MEDS: BENZTROPINE MESYLATE 1 MG TAB PO PRN (08:13)
[2017-05-10 08:51] VITALS: BP 134/84; PULSE 70; RESP 14; O2SAT 96
[2017-05-10] MEDS: guaiFENesin 600 MG TAB.ER PO SCH (09:07)
--- NOTE | 2017-05-10 10:55 | SOAPPROG ---
SOAP Progress Note Assessment/Plan: Assessment: 52yoCF with BMD/nicolás admitted in manic/psychotic, had Ritalin added 01/2017 which may have contributed, now on STC and restarted on outpt Li/Risp but no Ritalin. 05/04/17 14:44 per staff, slept 7.5hr. reports sleeping well through night. asking about medications, and Li level, and about headaches she has been having intermittently including at night upon awakening. thinks she feels fuzzy headed in AM due to 2mg Risperdal when typically on 0.5mg qam as outpt. Also c/o breast tenderness, and drowsy feeling she attributes to Risperdal. sees patternmaker sample in Jun as outpt. states she is postmenopausal since 2012. Glad to be off BP meds, recently d/cd. MSE: casually dressed, neatly kempt, good eye contact, nml speech rate/vol, nml psychom activity, mood "pretty good". affect appropriate range/euthymic. more organized thoughts, more linear and logical conversation, asking more appropriate questions, +engaging and normally conversant, no agitation or irritability, expressing insight into need for meds. denied ah/vh or any si/hi. PLAN: -Check Li level 05/06 in AM. -Discussed Risperdal dosing options, to adjust scheduling but continue for now at 2mg daily since overall improved clinically- doesn't want 2mg all at hs b/c feels she needs some during day, would like 0.5mg qd and 1.5mg qhs, denies , EPS or other s/e. states she has endocrine f/u in Jun 2017. -Incr prn tylenol to 1000mg tid prn from 650mg prn for H/A. no NSAIDs b/c on Li. monitor frequency, denies any other associated sxs (vision changes, unsteady gait, mm soreness or incontinence). had recent med changes with Li and antiHTN. will follow and consider hospitalist input if indicated. 05/05/17 12:15 per staff, slept 6.5hr. seemed with some confusion, staff reported pt was requesting tampons altho postmenopausal, also reported still breast tenderness and cold/allergy sxs Pt denied physical c/o on interview except "after we talked about it yesterday I noticed a small tremor in my jaw", then asked about power of suggestion to induce physical symptoms b/c noted no jaw tremor before. not noted clinically altho w/mild facial grimacing w/jaw retraction noted on prior interviews since admit. ?baseline. t/a ritalin having helped with her ADHD, but wondering if this contributed to her nicolás relapse. "maybe ritalin made me worse." But then talked of + effects of ritalin, incl incr self-esteem and decr worry, and felt "slimmer and better" about self. Educated on Ritalin effects, and advised not resuming such medication with her BMD dx, as timeframe does correlate with her relapse, and would need to t/w her outpt psych to further eval and manage sxs. still c/o feeling "lethargic and out of focus, like my brain is working too hard ", althjony only had 0.5mg risperdal instead of 2mg this am, adding that she historically noted AM risperdal helped her brain work less hard. Agreed to try Risperdal divided 1mg BID. Denied requesting tampons as reported by staff, states she had tiny bit spotting when showering. Li level pending for AM. MSE: overall more organized, linear, reality based and pleasantly conversant without irritability/lability, but still with some perseverations and inconsistencies in thought processes. mood "fine", affect controlled, no si/hi or any ah/vh. incr insight PLAN: Li level in AM. per records, typically needs higher levels for stability. f/u HTN, may need restart med. change risperdal to 1mg bid. cont Li 600mg bid. 05/06/17 12:30 slept 7hr. attending gps. Li level 0.7 on 600mg bid. reviewed Li dosing since admit: 04/20: 600mg am 04/21: 600/900 x 2d 04/23: incr to 900/1200 04/24: level 1.0. incr to 1200mg bid 05/01: level 1.7 1200mg x1 05/02: 600mg bid 05/06: level 0.7 Denied med s/e, altho still c/o about Risperdal, feeling it is causing "a little foggy" feeling. "I'm not convinced the 2mg is the right dose", but agrees to continue at 1mg bid for now until t/w outpt provider. no c/o any headaches today or sxs. Glad her therapist visited yesterday. mood "good", volunteers that she is happy to stay for a few more days in hosp if needed until meds are right. affect euthymic, nml speech rate/vol, good eye contact, tc/tp- more linear, goal directed, some perseveration on meds and somatic concerns, but no overt delusional thoughts, denied ah/vh or si/hi. i/j improved. PLAN: on STC. AG privs today. Increase Li to 600/900, recheck level Mon. outpt dose in past was 1200mg bid. concern that level of 0.7 too low and increases pt risk of relapse b/c historically has needed levels 1.0-1.4 per outpt md. also w/pt c/o Risperdal dosing at 2mg, concern for med noncompliance after d/c altho states she will stay with 1mg bid until t/w outpt psych. T/W hospitalist about BP med options Pt has f/u with outpt psychiatrist 05/11, and therapist next week states she has endocrine appt annually, scheduled 06/2017. will f/u if pt has PCP for BP f/u. has had decr freq of h/a's recently Anticipate d/c soon, with f/u Li level as outpt Concern for where she'd go since friend out of town through weekend, and concerned about being without extra support/structure 05/07/17 11:50 late entry per staff, slept 8.5hr. Cogentin 0.5mg prn noted helpful for jaw tremor/ tightness. has AG. doing well, working on relapse prevention feels prn cogentin helped jaw tightness/tremor. discussed EPS and meds, decided to try decr Risperdal over w/e since uptitration was quite rapid in midst of acute manic state. will leave 0.5mg prn avail if needed. no other noted s/e. MSE: bright, engaging, casually dressed, nml speech rate/vol, good eye contact, tc/tp- linear, goal directed, organized and expressing good insight. no delusional thoughts, denied ah/vh or si/hi. i/j both improved. cognition intact. PLAN: change risperdal from 1mg bid to 1mg/0.5mg with 0.5mg prn and monitor for improvement in mild EPS of jaw. cont cogentin 0.5mg bid prn repeat Li level on Mon AM cont [place] 600/900 plan d/c [facility], has f/u Tues 05/11 on [facility], has [facility] privs Hospitalist eval and recommendations on HTN much appreciated. 05/10/17 13:19 pt slept 7.5hr. no weekend issues. used AG privs appropriately. Li level 1.0 this AM. pt reports doing well, feeling well, ready for d/c. expresses insight into her need to stay on meds and work w/outpt psychiatrist, whom she will see tomorrow. had discussed avoiding ritalin due to risk for relapse of nicolás/psychosis. denied any adverse effects from decr risperdal to 1.5mg over weekend, using prn cogentin less. could cont to taper down w/outpt psych monitoring as outpt over time and would likely no longer need prn cogentin. denied s/e to Li. would like to d/c with bus voucher to have some "me time" in [place] before friend Damien picks her up to take to [place]. reasonable request, with no concerns for safety. MSE: pt was casually dressed, engaging, nml speech rate/vol, good eye contact, mood "good", affect full/bright, tc/tp- linear, goal directed, organized and expressing good insight. no delusional thoughts, denied ah/vh or si/hi. i/j both good. cognition intact. able to reflect on early part of hospitalization, "I bet I was a terror" and laughs, glad to feel stable now. requested meds be called into [facility] on [address], which was done for meds 1 month supply each [place] 600/900, risperidal 1/0.5, and cogentin 0.5 1-2x/d prn #45. Objective: Vital Signs Temp Pulse Resp BP Pulse Ox 36.5 C 70 14 134/84 H 96 05/10/17 00:30 05/10/17 08:00 05/10/17 08:00 05/10/17 08:00 05/10/17 08:00 Laboratory Results 04/24/17 06:40 - Time Spent With Patient Time Spent With Patient: 25min - Pending Discharge Pending Discharge Within 24 Hours: Yes Pending Discharge Date: 05/10/17 Pending Discharge Time: 11:00 ICD10 Worksheet Patient Problems: Problems Problem Status Onset Bipolar disorder Acute [place] toxicity Acute Psychosis Acute
[2017-05-10] MEDS: ACETAMINOPHEN 500 MG TAB PO PRN (10:59)
--- NOTE | 2017-05-11 16:14 | BDS ---
[f rep st] BEHAVIORAL HEALTH DISCHARGE SUMMARY HISTORY OF PRESENT ILLNESS: Patient is a 52-year-old female with a long history of bipolar mood disorder, whose friends contacted transit authority police officer several times for welfare checks due to her de palafox in functioning, not coming to work, and they are concerned about her being medication noncompli ant. She had been increasingly disturbed, disheveled, and not maintaining normal life patterns. On admission, she was disheveled, poorly groomed with circumstantial rambling and disorganized thought p rocesses, almost significantly tangential. Mood and affect were incongruent and presenting distresse d emotionally, but stating her mood was good. Her insight and judgment were noted to be poor. She h ad ended up in the emergency room on an M1 hold, and was hospitalized psychiatrically for stabilizati on. After admitting psychiatrist spoke with outpatient psychiatrist, Dr. Fortino Ladd, outpatient p sychiatrist confirmed patient diagnosis of bipolar mood disorder, and states he had been treating the patient for several years. He reports she has a history of periodic exacerbations of her bipolar mo od disorder, but functions quite well during stable periods with many friends and good work history, having worked for [employer] for several years. OUTPATIENT MEDICATIONS: Included lithium carbonate 1200 mg b.i.d. and Risperdal 0.25 mg daily, as we ll as medication for hypertension. Apparently in January 2017 they decided to add methylphenidate to he lp with her reported attentional problems, noting that this medication did help with attention, but m ay have precipitated exacerbation of her bipolar mood disorder. HOSPITAL COURSE: 1. Psychiatric: Patient was restarted on lithium carbonate which was gradually increased to previou s reported effective home dose of 1200 mg p.o. b.i.d. Patient initially refused to take Risperdal, b ut eventually did agree, and this was uptitrated quite quickly from 0.5 mg to 2 mg daily. She was co ntinued on antihypertensives, initially starting on clonidine, although had been on enalapril in the past, and so this medication was restarted as well. She was noted with elevated calcium and high-nor mal PTH with concerns for primary hyperparathyroidism in the face of long-term lithium use. Hyperpar athyroidism was noted as a common and relatively benign complication of long-term lithium use. Other medical issues include menopause which she states she has been in for 4 years. During the course of her hospitalization, she stabilized slowly, initially complaining about medications, how they were p rovided, what they looked like, having suspicions about them, including thinking she was being given medications other than what was prescribed. She gradually stabilized as her lithium level increased and she continued on 2 mg of Risperdal for her thought disorder. At one point during the hospital sta y she was noted with lithium level of 1.7 at 1200 mg daily, so lithium was decreased to 600 mg p.o. b .i.d., which resulted in a level of 0.7 mg. Her mood was more stable at this time, however, historic ally she has required a level of 1.02 to maintain stability in an outpatient setting. [employer] was th en increased to 600 p.o. q.a.m. and 900 mg p.o. q.h.s. with a level of 1.0 on day of discharge. Add itionally, it was felt that her antihypertensive medications were interfering with her lithium levels as often known to occur. Her antihypertensives were eventually tapered to discontinuation due to si de effects and occasional low blood pressure readings. Hospitalist was consulted towards latter part of hospital stay to re-evaluate, and felt that patient try conservative management of her hypertensi on, including weight loss and dietary changes with followup by primary care on outpatient basis. Jennifer ent was motivated to do so, stating she usually gets more exercise when not in a hospital setting, an d did meet with a dietitian to discuss dietary changes. For a period of time she did perseverate on desire to resume methylphenidate on an outpatient basis for her attention and focus. Again, it was r eiterated that this medication likely precipitated her bipolar mood episode with psychosis, and it wa s not recommended to be restarted. Patient will need to follow up with her outpatient psychiatrist a bout this and other options, although if she is sleeping well with normal mood, it is possible this m edication for attention may not be indicated. She did complain often of feeling her Risperdal level was too high, and was noted with some UTS of her jaw, she reported a mild jaw tremor, although this w as not noted, rather as some jaw tightening was clinically evident, and this was improved with additi on of p.r.n. Cogentin 0.5 mg, and a few days prior to discharge her total daily dose was decreased to 1.5 mg from 2 mg without any adverse effects. She does feel she needs a small dose of Risperdal reg ularly, especially in the morning for her thoughts as had been the case on an outpatient basis, and s he does understand that inpatient team is reluctant to make any further changes or discontinuation of the Risperdal as she is currently stable prior to discharge. Again, this can be evaluated on outpat ient basis with her psychiatrist who knows her well. Patient prior to discharge expressed very good insight into her illness and need for medications. Thought disorder was noted resolved, she was with out any behavioral concerns throughout hospital stay or any safety concerns. 2. Medical: Patient with history of hypertension, postmenopausal, and concerns for hyperparathyroid ism related to long-term lithium treatment. Regarding hypertension, she was initially started on krystin nidine, and later enalapril was restarted. Then there were times of hypotension necessitating holdin g of clonidine, and eventual discontinuation of this. Later it was felt that her enalapril was inter fering with her lithium levels contributing to her toxic lithium level of 1.7 at one point during her hospital stay. All antihypertensives were discontinued, and on 05/06, hospitalist was reconsulted f or recommendations as she continued with mild hypertension. Hospitalist noted that most antihyperten sives have interactions with lithium, and that if she had not had a history of toxicity it would be r easonable to start antihypertensive and monitor levels. Amiloride is a diuretic with no known effect on lithium levels, however, is not first-line in the management of hypertension. Amlodipine would b e a good choice, although there would be some caution necessary regarding combining neurotoxic effect s of the 2 medications. As her blood pressure was not markedly elevated, it was worthwhile to try an d improve blood pressure without medications, advising exercise 30 minutes a day most days of the wee k at moderate pace and also advised dietary modifications. Patient was provided an 8-page education handout on lifestyle management of blood pressure, including the DASH diet found on [facility] web s ite. [employer] Artist was consulted as well as noted. As noted, as well, LUIS ARMANDO inhibitor had been discontinu ed due to interaction with lithium, and patient had bradycardia and hypotension with clonidine and wi th a beta meliton. Blood pressure has been elevated since 05/03/2017, in the range of 134 to 154 sys tolic over 76 to 88. This will need to be followed on an outpatient basis with primary care physicia n. 3. Postmenopausal: No treatment indicated. 4. Hyperparathyroidism: Concerns for this were as noted above for the elevated calcium and PTH. Re peat calcium level was normal on 04/30/2017, noting that elevated calcium and PTH may have been trans ient. Can pursue repeat in outpatient setting. 5. Headache: Patient did complain of headache at times during hospital stay, was recommend to avoid use of NSAIDs since on lithium, and okay p.r.n. dose of tramadol or Tylenol. This was not an issue closer to discharge. 6. Legal: Patient admitted on M1 hold. Placed on short-term certification during hospital stay whi ch was terminated at discharge. 7. Safety: Patient denied any suicidal or homicidal thoughts throughout hospital stay. There were no concerns for unsafe behaviors on unit or at discharge. MENTAL STATUS EXAM AT DISCHARGE: Patient was casually dressed, engaging with normal speech rate and volume, good eye contact. Mood was "good." Affect was full and bright and appropriate range, though ts were linear, goal-directed, organized, and she expressed good insight noting even that, "I bet I w as a terror" on admission and laughs. Glad to feel stable at this time. Patient denied any auditory or visual hallucinations and denied any throughout her hospital stay. She denied any suicidal, homi cidal ideations as well. Insight and judgment were both felt to be good. Cognition was intact. Hortensia garland was future oriented and motivated for treatment. DISCHARGE PLAN: Patient was discharged with bus voucher as she requested some "me time" in [facility] her friend picks her up to take her to [place] where she will be staying. This was felt to be a reasonable request. She has followup appointments arranged with outpatient psychiatrist, Dr. Fortino rios, , his phone number. Appointment on 05/11 at 1 p.m. appointment with therapist, Edna Ruiz, on 05/17 at 10:30 a.m. Paperwork for leave of absence from work was add ressed during hospital stay. She slept well during latter part of her hospitalization once stabilize d, and did prefer to continue on melatonin 3 mg p.o. at bedtime. OTHER DISCHARGE MEDICATIONS: Include lithium carbonate 600 mg p.o. q.a.m., 900 mg p.o. at bedtime; R isperdal 1 mg p.o. q.a.m., 0.5 mg p.o. q.h.s.; and Cogentin 0.5 mg 1-2 times daily p.r.n., #45. One month's supply of lithium and Risperdal with no refills, and #45 with no refills of Cogentin were kacy led into [facility] on [address] at discharge per patient request. FOLLOW UP: Recommend with primary care regarding issues as noted above, notably hypertension and fol low up calcium and PTH as indicated. Continue with recommended dietary and lifestyle managements for management of blood pressure and reassess for need for medication on outpatient basis as noted. Rec edgarmenrasta avoidance of psychostimulants, which notably methylphenidate in this situation which may have precipitated her relapse prior to hospitalization. /[id number]/MODL
== END 2017-05-10 12:25 | disposition home or self-care (01) | DRG 885 ==
LOC: BBEH 20:00
PROVIDERS: ADMIT Internal Medicine Endocrinology, Diabetes & Metabolism; ATTEND Psychiatry & Neurology Behavioral Neurology & Neuropsychiatry
DX: F31.2 Bipolar disorder, current episode manic severe with psychotic features (principal); T43.595A Adverse effect of other antipsychotics and neuroleptics, initial encounter; T43.505A Adverse effect of unspecified antipsychotics and neuroleptics, initial encounter; I95.2 Hypotension due to drugs; Z91.14 Patient's other noncompliance with medication regimen; R68.84 Jaw pain; R51 Headache; E21.2 Other hyperparathyroidism; I10 Essential (primary) hypertension; Z78.0 Asymptomatic menopausal state; Z79.899 Other long term (current) drug therapy
CPT/HCPCS: 80305; G0480